=== PATIENT | male | born 1970 ===

== ENCOUNTER 2020-04-17 22:54 | Emergency (ER) | payer OTHER, SELFPAY ==
[2020-04-17 22:58] VITALS: BP 148/89; PULSE 55; RESP 18; TEMP 36.2; O2SAT 99; BMI 31.9
--- NOTE | 2020-04-17 23:35 | ED.DIZZY ---
HPI - Dizziness General Chief Complaint: Dizziness Stated Complaint: dizzy spells Time Seen by Provider: 04/17/20 23:35 Source: patient Mode of arrival: ambulatory Limitations: no limitations History of Present Illness HPI Narrative: patient's history of vertigo about 3 years ago came for 3 hours of dizziness which increases on movements of the head and changing of position no nausea no vomiting no headache symptoms started all of a sudden patient able to ambulate no loss of consciousness no chest pain MD elicited complaint: dizziness Pertinent past history: BPPV Onset (ago): hour(s) (3) Timing: sudden onset Severity: mild Description: sense of movement and room spinning Context: change in body position History of similar symptoms: Yes Exacerbating factors: movement/ambulation and change in body position Relieving factors: remaining still Associated symptoms: denies other symptoms Related Data Allergies Allergy/AdvReac Type Severity Reaction Status Date / Time none Allergy Unknown Uncoded 07/19/19 00:00 Review of Systems Review of Systems: Yes all other systems are reviewed and are negative [facility] Social History Social History Alcohol intake: current Alcohol intake frequency: holidays/special occasions only Alcohol type: wine Smoking Status: Never smoker Use of substances other than those prescribed or required for medical reasons: No Advance Directives: No Physical Exam Vital Signs: Vital Signs: Last Vital Signs Temp 97.2 F 04/17/20 22:58 Pulse 61 04/18/20 00:04 Resp 18 04/18/20 00:04 BP 111/70 04/18/20 00:04 Pulse Ox 98 04/18/20 00:04 Body Mass Index 31.9 Appearance: Alert. Oriented X3. No acute distress. Eyes: Pupils equal, round and reactive to light. no nystagmus ENT: Pharynx normal. Neck: Normal inspection. Neck supple. CVS: Normal heart rate and rhythm. Pulses normal. Respiratory: No respiratory distress. Breath sounds normal. Abdomen: Soft and nontender. Skin: Skin warm and dry. Normal skin color. Normal skin turgor. Extremities: No lower extremity edema. Good range of movement Neuro: Oriented X 3. No motor deficit. No sensory deficit. no cerebellar signs MDM - Dizziness MDM Narrative Medical decision making narrative: patient with sudden onset of dizziness with history of similar episode of BPV the past without any neurological deficit feels better after meclizine will discharge patient home Differential Diagnosis Differential diagnosis: Likely benign paroxysmal positional vertigo
[2020-04-17] MEDS: Meclizine HCl 25 MG TABLET 50 MG PO (23:58)
[2020-04-18 00:04] VITALS: BP 111/70; PULSE 61; RESP 18; O2SAT 98
--- NOTE | 2020-04-18 01:18 | PC.NURSE ---
pt has demonstraited a steady gait with no vertigo noted. pt is aox3 skin pink warm and dry with no s/s of distress. pt has ambulated to bathroom with steady gait and voided with no difficulty. pt states he feels ready to go home.
== END 2020-04-18 01:18 | disposition home or self-care (01) ==
PROVIDERS: Emergency Provider Internal Medicine; PCP Internal Medicine
DX: R42 Dizziness and giddiness (principal)
CPT/HCPCS: 99283; 99284

== ENCOUNTER 2020-05-14 07:26 | Day surgery (SDC) | payer OTHER, SELFPAY ==
[2020-05-01 14:10] VITALS: BMI 31.9
--- NOTE | 2020-05-07 14:00 | P.CONAN_ITS ---
Documented by User: Richa Kirby 05/07/20 14:01 HPI - Anesthesia Eval Consult details Narrative: 50yo M for Colonoscopy [facility] Past Medical History Medical History Carpal tunnel syndrome GERD (gastroesophageal reflux disease) Impaired fasting glucose Obesity Vertigo Surgical History Surgical History No significant past surgical history Social History Social History Are you a primary assisted living care manager to a significant other at home: No Do you presently have visiting nurse or other home services: No Alcohol intake: current Alcohol intake frequency: holidays/special occasions only Alcohol type: wine Smoking Status: Never smoker Use of substances other than those prescribed or required for medical reasons: No Have you been hit, kicked, punched, or otherwise hurt by someone within the past year? If so, by whom?: No Advance Directives: No Advance Directives Information Provided: No Advance Directives on File: No Recently lost weight without trying: No Meds Allergies Allergy/AdvReac Type Severity Reaction Status Date / Time No Known Allergies Allergy Verified 05/01/20 14:10 Exam Exam Date and Time: May 07, 2020 1400 Height,Weight and Vital Signs: Height 5 ft 8 in Weight 95.254 kg Assessment and Plan Assessment Anesthesia Assessment: Chart Reviewed Documented by User: Kelsey Bass 05/14/20 08:27 [facility] Past Medical History Medical History Carpal tunnel syndrome GERD (gastroesophageal reflux disease) Impaired fasting glucose Obesity Vertigo Surgical History Surgical History No significant past surgical history Social History Social History Are you a primary assisted living care manager to a significant other at home: No Do you presently have visiting nurse or other home services: No Alcohol intake: current Alcohol intake frequency: holidays/special occasions only Alcohol type: wine Smoking Status: Never smoker Use of substances other than those prescribed or required for medical reasons: No Have you been hit, kicked, punched, or otherwise hurt by someone within the past year? If so, by whom?: No Advance Directives: No Advance Directives Information Provided: No Advance Directives on File: No Recently lost weight without trying: No Meds Allergies Allergy/AdvReac Type Severity Reaction Status Date / Time No Known Allergies Allergy Verified 05/01/20 14:10 Exam Airway Mallampati Class: I TM Dist: >3cm Neck ROM: Full Loose/Missing/Broken Teeth: No Heart: RRR Lungs: CTA Assessment and Plan Assessment Anesthesia Assessment: Anesthesia Plan Discussed and Chart Reviewed Final Anesthetic Review NPO: Yes ASA Class: II Final Preanesthetic Review: Meds/Allgs Chart Reviewed, Consent Obtained/Reviewed and Anes Risks/Benef Reviewed Patient Risk: Low Procedure Risk: Low Anesthetic Plan Anesthetic Plan: MAC: Disposition: Standard PACU
[2020-05-14 07:58] VITALS: BP 133/87; PULSE 82; RESP 18; TEMP 36.2; O2SAT 98
[2020-05-14] MEDS: Lactated Ringers 1,000 ML 100 ML IVCONT (08:14)
--- NOTE | 2020-05-14 08:51 | P.BOP_ITS ---
Brief Operative Note Date of Service: 05/14/20 Pre-op diagnosis: colon screening Post-op diagnosis: same Procedure: Operative Information Procedure Description: Colonoscopy COLONOSCOPY Instrument: Olympus variable stiffness pediatric scope 190L Colonoscopy Monitoring: Vital signs and clinical assessment, continuous EKG monitoring, Pulse oximetry, Carbon Dioxide monitoring and blood pressure monitoring were done throughout the procedure. Colon withdrawal time was 17 minutes. Procedure: The patient was placed in the left lateral decubitis position and pre-procedure medications were administered. After a digital rectal examination of the ano-rectum, the video colonoscope was inserted into the rectum and advanced through the colon to the cecum/TI. The colonoscope was slowly withdrawn in a retrograde panoramic fashion and the colon mucosa was carefully examined including a retroflexed view of the rectum. Findings and interventions are described below. Procedure Difficulty: easy Findings: Estrada diverticular disease, with inverted tics noted, worse in sigmoid Terminal Ileum-normal Cecum: x2 sessile polyps, very subtle noted measuring about 8-1 0 mm removed with biopsy forceps Ascending Colon: 10 mm flat polyp lifted with few cc of ORISE and removed with cold snare, possible residual tissue at edges removed with forceps Transverse Colon -normal Descending Colon:normal Sigmoid Colon: normal Rectum: Retroflexion with small internal hemorrhoids, grade I Anorectum - normal Colon preparation: [place] Bowel Preparation Scale Right colon; 3 Transverse colon: 3 Left colon; 3 (0 = Unprepared colon segment with mucosa not seen due to solid stool that cannot be cleared. 1 = Portion of mucosa of the colon segment seen, but other areas of the colon segment not well seen due to staining, residual stool and/or opaque liquid. 2 = Minor amount of residual staining, small fragments of stool and/or opaque liquid, but mucosa of colon segment seen well. 3 = Entire mucosa of colon segment seen well with no residual staining, small fragments of stool or opaque liquid) Impression and Post Procedure Diagnosis: polyps internal hemorrhoids diverticular disease Plan: High fiber diet leaflet Avoid straining at stool, epsom salts and sitz bath, anusol supps or cream prn Repeat Colonoscopy in 5 years or earlier if clinically indicated Above findings were reviewed with the patient and relevant handouts were provided if indicated. Surgeon: Karla Dillard MD Anesthesia: MAC Estimated blood loss (mL): 0 Condition: stable Disposition: PACU
--- NOTE | 2020-05-14 08:51 | MHC.SHP ---
Pre-Procedural Eval Section B Chief Complaint: Screening Relevant Family History (Specify if Yes): No Relevant Social History: None Present Medications: see Short Stay Collaborative assessment Medical History: Significant History (Carpal tunnel syndrome GERD (gastroesophageal reflux disease) Impaired fasting glucose Obesity Vertigo) History of Previous Operations: No relevant previous surgery Allergies: Allergies Allergy/AdvReac Type Severity Reaction Status Date / Time No Known Allergies Allergy Verified 05/01/20 14:10 Review of Systems Sugical H&P ROS: Negative: Constitution, Cardiovascular, Respiratory, Neurological, Psychiatric, Hem-Onc, Allergic/Immunologic, Gastrointestinal, Genitourinary, Musculoskeletal, Integumentary, Endocrine and Eyes/Ears/Nose/Throat Exam Surgical H&P Exam: Normal: HEENT, Normal: Heart, Normal: Lungs, Normal: Extremities, Normal: Abdomen, Normal: Skin and Normal: Neurological Plan Diagnosis/Plan: Unchanged I have reviewed the history and physical and performed a pertinent physical examination on my patient. No changes have occurred unless specified.
[2020-05-14 09:23] VITALS: BP 115/67; PULSE 74; RESP 16; TEMP 36.3; O2SAT 99
[2020-05-14 09:38] VITALS: BP 115/78; PULSE 74; RESP 18; TEMP 36.5; O2SAT 100
--- NOTE | 2020-05-14 09:51 | HO.POSTANES ---
Post Anesthesia Evaluation Post Anesthesia Evaluation Vital Signs: Vital Signs Temp Pulse Resp BP Pulse Ox 05/14/20 09:38 97.7 F 74 18 115/78 100 05/14/20 09:23 97.4 F 74 16 115/67 99 05/14/20 07:58 97.1 F 82 18 133/87 98 Anesthesia: Monitored Mental Status: Awake Pain Control: Satisfactory Nausea/Vomiting: None Hydration: Adequate Anesthesia-Related Issues: No Anes. Related Issues
== END 2020-05-14 10:00 | disposition home or self-care (01) ==
PROVIDERS: PCP Internal Medicine; Visit Provider Internal Medicine Gastroenterology
PROC: 0DJD8ZZ Inspection of Lower Intestinal Tract, Via Natural or Artificial Opening Endoscopic (ICD-10-PCS; CPT 45378; principal; 2020-05-14 08:30)
DX: Z12.11 Encounter for screening for malignant neoplasm of colon (principal); D12.0 Benign neoplasm of cecum; D12.2 Benign neoplasm of ascending colon; K57.30 Diverticulosis of large intestine without perforation or abscess without bleeding; K64.0 First degree hemorrhoids; K21.9 Gastro-esophageal reflux disease without esophagitis; R73.01 Impaired fasting glucose; R42 Dizziness and giddiness; Z79.899 Other long term (current) drug therapy
CPT/HCPCS: 45385; 45380; 45381; 88305

== ENCOUNTER → 2020-05-28 11:06 | Outpatient (BNVA) | payer OTHER, SELFPAY | PROVIDERS: PCP Internal Medicine; Referring Provider Internal Medicine; Visit Provider Physician Assistant ==

== ENCOUNTER 2020-06-01 12:25 | Outpatient (REF) | payer OTHER, SELFPAY | END 2020-06-01 12:26 | disposition home or self-care (01) | LOC: HO.LAB 12:25 | PROVIDERS: Visit Provider Internal Medicine | DX: Z20.822 Contact with and (suspected) exposure to COVID-19 (principal) | CPT/HCPCS: 36415; C9803; U0003 ==

== ENCOUNTER 2020-06-06 07:14 | Outpatient (REF) | payer OTHER, SELFPAY ==
[2020-06-06 08:04] LABS: MANUAL DIFF FLAG NO
[2020-06-06 08:06] LABS: Eosinophils Absolute Auto 0.1 X10*3/uL (0.0-0.4); Eosinophils Percent Auto 1.3 % (0-4); Hematocrit 41.7 % (42-52); Hemoglobin 14.4 g/dl (14.0-18.0); Imm Gran Abs Auto 0.02 X10*3/uL (0.00-0.03); Imm Gran Pct Auto 0.5 % (0.0-0.4); Lymphocytes Absolute Auto 1.4 X10*3/uL (1.2-4.9); Lymphocytes Percent Auto 34.4 % (20-40); Mean Corpuscular HGB Conc 34.5 g/dl (31.0-36.0); Mean Corpuscular Hemoglobin 29.4 pg (27.0-33.0); Mean Corpuscular Volume 85.3 fL (80-98); Mean Platelet Volume 10.9 fL (9.4-12.4); Monocytes Absolute Auto 0.3 X10*3/uL (0.1-1.2); Monocytes Percent Auto 8.2 % (2-11); Neutrophils Absolute Auto 2.1 X10*3/uL (2.0-8.3); Neutrophils Percent Auto 54.6 % (45-73); Platelet Count 158 X10*3/uL (160-400); Red Blood Count 4.89 X10*6/uL (4.60-5.80); Red Cell Distribution Width 12.6 % (11.0-16.0); White Blood Count 3.9 X10*3/uL (4.8-10.8)
[2020-06-06 09:02] LABS: Alanine Aminotransferase 22 U/L (0-40); Albumin Level 4.3 g/dL (3.5-5.0); Alkaline Phosphatase 82 U/L (39-117); Anion Gap 10 (12-20); Aspartate Amino Transferase 20 U/L (5-37); Bilirubin Total 1.3 mg/dL (0.0-1.0); Blood Urea Nitrogen 14 mg/dL (9-16); Calcium 9.1 mg/dL (8.4-10.2); Carbon Dioxide 27 mmol/L (22-29); Chloride 105 mmol/L (96-108); Cholesterol 134 mg/dL; Estimated Glomerular Filt Rate > 60; Glucose Random 116 mg/dL (60-115); HDL Cholesterol 39 mg/dL; LDL Cholesterol Calculated 75 mg/dl; Potassium 4.3 mmol/l (3.3-5.1); Sodium 138 mmol/L (135-145); Total Protein 7.3 g/dL (6.5-8.0); Triglycerides 100 mg/dL
[2020-06-06 09:23] LABS: Free T4 (Free Thyroxine) 1.01 ng/dL (0.71-1.85); Prostate Specific Antigen Scr 0.63 ng/mL (<0.05-4.0); Thyroid Stimulating Hormone 1.64 uIU/mL (0.32-4.0)
[2020-06-06 09:50] LABS: Folate 16.4 ng/mL (> or = 4.0); Vitamin B12 360 pg/mL (200-900)
[2020-06-06 10:30] LABS: Estimated Average Glucose 111 mg/dL; Hemoglobin A1c % 5.5 %
== END 2020-06-06 07:15 | disposition home or self-care (01) ==
LOC: HO.LAB 07:14
PROVIDERS: PCP Internal Medicine; Visit Provider Internal Medicine
DX: R73.01 Impaired fasting glucose (principal); E78.00 Pure hypercholesterolemia, unspecified; Z12.5 Encounter for screening for malignant neoplasm of prostate
CPT/HCPCS: 36415; 80053; 80061; 82607; 82746; 83036; 84153; 84439; 84443; 85025; 86900; 86901

== ENCOUNTER 2020-09-04 15:53 | Outpatient (REF) | payer OTHER, SELFPAY | END 2020-09-04 15:54 | disposition home or self-care (01) | LOC: HO.LAB 15:53 | PROVIDERS: Visit Provider Internal Medicine | DX: Z20.822 Contact with and (suspected) exposure to COVID-19 (principal) | CPT/HCPCS: 36415; 87635; C9803; U0003; U0005 ==

== ENCOUNTER 2020-09-17 14:10 | Outpatient (REF) | payer OTHER, SELFPAY ==
[2020-09-17 14:28] LABS: COVID-19 Test Negative (Negative)
== END 2020-09-17 14:11 | disposition home or self-care (01) ==
LOC: HO.LAB 14:10
PROVIDERS: Visit Provider Internal Medicine
DX: Z20.822 Contact with and (suspected) exposure to COVID-19 (principal)
CPT/HCPCS: 36415; 87635; C9803

== ENCOUNTER 2021-01-24 12:26 | Outpatient (REF) | payer OTHER, SELFPAY | END 2021-01-24 12:27 | disposition home or self-care (01) | LOC: HO.LAB 12:26 | PROVIDERS: PCP Internal Medicine; Visit Provider Internal Medicine | DX: Z20.822 Contact with and (suspected) exposure to COVID-19 (principal) | CPT/HCPCS: C9803; U0003; U0005 ==

== ENCOUNTER 2021-09-27 10:55 | Outpatient (REF) | payer OTHER, SELFPAY ==
[2021-09-27 12:09] LABS: COVID-19 Test Positive (Negative)
== END 2021-09-27 10:56 | disposition home or self-care (01) ==
LOC: HO.LAB 10:55
PROVIDERS: Visit Provider Internal Medicine
DX: Z20.822 Contact with and (suspected) exposure to COVID-19 (principal)
CPT/HCPCS: 87635; C9803

== ENCOUNTER 2021-10-02 15:20 | Outpatient (REF) | payer OTHER, SELFPAY ==
[2021-10-02 15:53] LABS: COVID-19 Test Negative (Negative); IDNOW Serial# 9DB6401D
== END 2021-10-02 15:21 | disposition home or self-care (01) ==
LOC: HO.LAB 15:20
PROVIDERS: Visit Provider Internal Medicine
DX: Z20.822 Contact with and (suspected) exposure to COVID-19 (principal)
CPT/HCPCS: 87635; C9803

== ENCOUNTER 2022-07-11 07:35 | Outpatient (REF) | payer OTHER, SELFPAY ==
[2022-07-11 09:41] LABS: HBc Num1 0.07 S/CO (0.00-0.79); HBsAGNum1 0.52 S/CO (0.00-0.99); HIV AB/AG Nonreactive (Nonreactive); HIV Num 1 0.06 S/CO (0.00-0.99); Hepatitis B Core Antibody Nonreactive (Nonreactive); Hepatitis B Surface Antigen Negative (Negative); ~HepC Num1 0.12 S/CO (0.00-0.79); ~Hepatitis B Surface Antibody NONREACTIVE (Nonreactive); ~Hepatitis C Antibody Nonreactive (Nonreactive)
[2022-07-16 20:28] LABS: Treponema pallidum Ab FTA ABS Nonreactive (Nonreactive)
== END 2022-07-11 07:36 | disposition home or self-care (01) ==
LOC: HO.LAB 07:35
PROVIDERS: PCP Internal Medicine; Visit Provider Internal Medicine
DX: Z11.4 Encounter for screening for human immunodeficiency virus [HIV] (principal); R79.89 Other specified abnormal findings of blood chemistry; Z20.2 Contact with and (suspected) exposure to infections with a predominantly sexual mode of transmission
CPT/HCPCS: 36415; 86704; 86706; 86780; 86803; 87340; 87389

== ENCOUNTER 2023-05-02 08:59 | Outpatient (REF) | payer OTHER, SELFPAY ==
[2023-05-02 10:29] LABS: Basophils Percent Auto 0.4 % (0-2); Eosinophils Absolute Auto 0.1 X10*3/uL (0.0-0.4); Eosinophils Percent Auto 1.1 % (0-4); Hematocrit 44.2 % (42.0-52.0); Hemoglobin 15.3 g/dl (14.0-18.0); Imm Gran Abs Auto 0.02 X10*3/uL (0.00-0.03); Imm Gran Pct Auto 0.4 % (0.0-0.4); Lymphocytes Absolute Auto 1.2 X10*3/uL (1.2-4.9); Lymphocytes Percent Auto 26.5 % (20-40); MANUAL DIFF FLAG SCAN; Mean Corpuscular HGB Conc 34.6 g/dl (31.0-36.0); Mean Corpuscular Hemoglobin 29.1 pg (27.0-33.0); Monocytes Absolute Auto 0.3 X10*3/uL (0.1-1.2); Monocytes Percent Auto 6.5 % (2-11); Neutrophils Percent Auto 65.1 % (45-73); PLT CLUMP 1; Red Blood Count 5.26 X10*6/uL (4.60-5.80); Red Cell Distribution Width 12.4 % (11.0-16.0); SCAN SMEAR FLAG 1
[2023-05-02 10:39] LABS: Estimated Average Glucose 111 mg/dL; Hemoglobin A1c % 5.5 % (<6.0)
[2023-05-02 10:49] LABS: White Blood Count 4.6 X10*3/uL (4.8-10.8)
[2023-05-02 11:01] LABS: SLIDE REVIEW VERIFIED
[2023-05-02 11:05] LABS: Alanine Aminotransferase 20 U/L (0-40); Albumin Level 4.4 g/dL (3.5-5.0); Alkaline Phosphatase 77 U/L (39-117); Anion Gap 14 (12-20); Aspartate Amino Transferase 27 U/L (5-37); Bilirubin Total 1.6 mg/dL (0.0-1.0); Blood Urea Nitrogen 15 mg/dL (9-16); Calcium 9.8 mg/dL (8.4-10.2); Carbon Dioxide 25 mmol/L (22-29); Chloride 106 mmol/L (96-108); Cholesterol 143 mg/dL (<200); Estimated Glomerular Filt Rate > 60; Glucose Random 127 mg/dL (60-115); HDL Cholesterol 40 mg/dL (>40); LDL Cholesterol Calculated 87 mg/dL (<100); Potassium 4.3 mmol/L (3.3-5.1); Sodium 141 mmol/L (135-145); Triglycerides 80 mg/dL (<150)
[2023-05-02 11:16] LABS: Syphilis Screen Nonreactive (Nonreactive)
[2023-05-02 11:17] LABS: HBS Num1 0.63 mIU/mL (0-7.99); HBc Num1 0.08 S/CO (0.00-0.79); HBsAGNum1 0.32 S/CO (0.00-0.99); Hepatitis B Core Antibody Nonreactive (Nonreactive); Hepatitis B Surface Antigen Negative (Negative); ~HepC Num1 0.11 S/CO (0.00-0.79); ~Hepatitis B Surface Antibody NONREACTIVE (Nonreactive); ~Hepatitis C Antibody Nonreactive (Nonreactive)
[2023-05-02 11:21] LABS: Free T4 (Free Thyroxine) 1.06 ng/dL (0.71-1.85)
[2023-05-02 11:52] LABS: Thyroid Stimulating Hormone 1.84 uIU/mL (0.32-4.0)
[2023-05-02 12:21] LABS: Folate 13.5 ng/mL (> or = 4.0); Prostate Specific Antigen Scr 0.83 ng/mL (<0.05-4.0); Vitamin B12 568 pg/mL (200-900)
[2023-05-06 17:09] LABS: HIV RNA PCR Qn Copies Not Detected Copies/mL; HIV RNA PCR Qn Log Copies Not Detected Log cps/mL
== END 2023-05-02 09:00 | disposition home or self-care (01) ==
LOC: HO.LAB 08:59
PROVIDERS: PCP Internal Medicine; Visit Provider Internal Medicine
DX: Z12.5 Encounter for screening for malignant neoplasm of prostate (principal); Z11.4 Encounter for screening for human immunodeficiency virus [HIV]; R73.01 Impaired fasting glucose; E78.00 Pure hypercholesterolemia, unspecified; R79.89 Other specified abnormal findings of blood chemistry; Z20.2 Contact with and (suspected) exposure to infections with a predominantly sexual mode of transmission
CPT/HCPCS: 36415; 80053; 80061; 82607; 82746; 83036; 84153; 84439; 84443; 85025; 86704; 86706; 86780; 86803; 87340; 87536; 87900

== ENCOUNTER 2023-05-06 14:12 | Outpatient (AMB) | payer OTHER, SELFPAY ==
--- NOTE | 2023-05-06 14:14 | A.OFFPC_ITS ---
Vital Signs 05/06/23 14:15 05/06/23 14:40 Height 5 ft 6.93 in Weight 202 lb 2 oz BMI 31.7 BP 150/90 H 140/90 H Blood Pressure Location Lt brachial Lt brachial Position Sitting Sitting Pulse 74 Pulse Source Pulse Oximeter Pulse Oximetry (%) 98 Oxygen Delivery Method Room Air Intake Visit Reasons: Physical Mangle Roller Required: No Accompanied by: Self / Same As Patient Allergies No Known Allergies Allergy (Verified 05/06/23 14:15) Medication List - Last Reconciled 05/06/23 by Venu Barclay MD blood pressure monitor (Blood Pressure Kit) As directed Tobacco use date assessed: 05/06/23 Dental Screening Dental Screen Date: 05/06/23 Did you have a dental visit in the last 12 months?: No Did you have a dental problem in the last 6 months where you did not have access to dental care?: No Was dental information given to patient?: Yes HPI Physical HPI Details 53-year-old obese male with GERD and imp aired glucose tolerance last seen for physical in June 2021. Patient follows up today for physical exam. Colonoscopy is up-to-date May 2020 [facility] Medical History Carpal tunnel syndrome GERD (gastroesophageal reflux disease) Impaired fasting glucose Obesity Vertigo Surgical History No significant past surgical history Family History Unknown No family history of colorectal cancer Social History (Updated 05/06/23 @ 14:43 by Venu Barclay MD) Household Members: Spouse and Children Housing: House Are you a primary transitional care liaison to a significant other at home: No Do you presently have visiting nurse or other home services: No Alcohol intake: current Alcohol intake frequency: holidays/special occasions only Alcohol type: wine Comment: 2x a month 1-2 glasses Patient Tobacco Use Status: Never used Tobacco e-Cigarette/Vaping Use: Never Used Second Hand Smoke Exposure: No service: No Current occupational status: employed Current occupation: [employer] Current occupational exposures/hazards: Yes Cognitive needs: No Hearing needs: No Vision needs: Yes Questionnaire PHQ-9 Over the last 2 weeks, how often have you been bothered by any of the following problems? 1. Little interest or pleasure in doing things: not at all 2. Feeling down, depressed, or hopeless: not at all 3. Trouble falling or staying asleep, or sleeping too much: not at all 4. Feeling tired or having little energy: not at all 5. Poor appetite or overeating: not at all 6. Feeling bad about yourself - or that you are a failure or have let yourself or your family down: not at all 7. Trouble concentrating on things, such as reading the newspaper or watching television: not at all 8. Moving or speaking so slowly that other people could have noticed. Or the opposite - being so fidgety or restless that you have been moving around a lot more than usual: not at all 9. Thoughts that you would be better off or of hurting yourself in some way: not at all Total score: 0 48504 - PHQ-9 Billing: Yes Source: Developed by Drs. Bernard Oh, Cecily Mckeon, Warren Bonner and colleagues, with an educational cornell from [employer]. Thrive Questionnaire Date Thrive assessed: 05/06/23 I am a: Patient What is your living situation today?: I have a steady place to live Within the past 12 months, did the food you bought not last and you didn't have the money to get more?: Never true Within the past 12 months, did you worry whether your food would run out before you got money to buy more?: Never true Do you have trouble paying for medicines?: No Do you have trouble getting transportation to medical appointments?: No Do you have trouble paying your heating and electricity bill?: No Do you have trouble taking care of your child, family member or friend?: No Do you have trouble with day-to-day activities such as bathing, preparing meals, shopping, managing finances, etc.?: No Are you currently unemployed and looking for a job?: No Are you interested in more education?: No Please select the resources that you would like help with: None Currently or been in a relationship where the following occur: no concerns reported AUDIT C Alcohol Use Questionnaire (AUDIT-C) 1. How often do you have a drink containing alcohol?: Monthly or less 2. How many drinks containing alcohol do you have on a typical day when you are drinking?: 1 or 2 3. How often do you have six or more drinks on one occasion?: Never Total Score: 1 BLANCA-7 AMB Questionnaire BLANCA-7 Date BLANCA - 7 assessed: 05/06/23 Feeling nervous, anxious, or on edge: 0 = Not at all Not being able to stop or control worryin = Not at all Worrying too much about different things: 0 = Not at all Trouble relaxin = Not at all Being so restless that it is hard to sit still: 0 = Not at all Becoming easily annoyed or irritable: 0 = Not at all Feeling afraid as if something awful might happen: 0 = Not at all Total BLANCA-7 score (0-4 normal; 5-9 mild; 10-14 moderate; 15-21 severe): 0 Source: Developed by Drs. Bernard Oh, Cecily Mckeon, Warren Bonner and colleagues, with an educational cornell from [employer]. BLANCA-7 Assessment Billing BLANCA-7 Assessment Tool: BLANCA-7 Assessment 14307 Review of Systems Const Denies poor appetite and Denies weakness Eyes Denies no additional complaints ENT Reports Normal hearing present, Denies dizziness, Denies nasal congestion, Denies tinnitus and Denies sore throat Card Denies chest pain, Denies syncope, Denies rapid heart rate and Denies dyspnea Resp Denies cough and Denies dyspnea GI Denies change in stool character, Reports constipation, Denies diarrhea, Denies nausea and Denies vomiting Denies dysuria and Denies urinary frequency Neuro Reports Normal hearing present, Denies confusion, Denies dizziness, Denies syncope and Denies weakness Psych Denies confusion Physical exam (Primary Care) Vital Signs: Last Vital Signs Pulse 74 05/06/23 14:15 BP 150/90 H 05/06/23 14:15 Pulse Ox 98 05/06/23 14:15 Oxygen Delivery Method Room Air 05/06/23 14:15 BMI result Body Mass Index 31.7 Tobacco/Smoking Status: Tobacco use Status Tobacco use date assessed 05/06/23 05/06/23 14:25 Patient Tobacco Use Status Never used Tobacco 05/06/23 14:16 e-Cigarette/Vaping Use Never Used 05/06/23 14:16 PHQ-9: PHQ-9 Score PHQ-9: Total score 0 05/06/23 14:25 Thrive Assessment: Date of Thrive Assessment Date Thrive assessed 05/06/23 05/06/23 14:25 Currently or been in a relationship where the following occur: no concerns reported Const General: alert and awake; No confusion Orientation/consciousness: No confusion HENMT Head: Yes normocephalic Ears: external ears normal and TM's normal bilaterally Face and sinus: Yes normal facial exam Mouth: moist mucous membranes Throat: Yes tonsils normal Eyes Conjunctivae: conjunctivae normal Pupils: Equal, round and reactive pupils present and Pupil accommodation reflex normal Direct Ophthalmoscopy: normal light reflex Neck Neck: No lymphadenopathy Thyroid: Thyroid normal Chest Other: Pole 1 cm hyper pigmented palpable cyst on the chest-patient has mentioned that has been squeezing the cyst out causing the hyper pigmentation. Resp Effort & Inspection: normal respiratory effort and no audible wheezes Auscultation: clear to auscultation bilaterally, no crackles, no wheezes and lung sounds not diminished Cardio Rate: regular rate Rhythm: regular rhythm Peripheral pulses: radial pulses present and dorsalis pedis present GI Other: Guaiac negative stools mildly enlarged prostate Palpation (GI): no masses Auscultation: normal bowel sounds and normoactive bowel sounds Rectal Exam - Male: Yes deferred Skin General skin exam: no rashes or lesions noted Rashes: no rashes Neuro General: deep tendon reflexes 2+ bilaterally and No confusion Cranial nerves: Yes Equal, round and reactive pupils present, Yes Midline tongue present, Yes Normal hearing present and Yes Ability to bilaterally elevate shoulders present Cognition (Neuro): normal cognition Gait exam (Neuro): Normal gait present Motor exam (neuro): 5/5 motor strength present throughout Deep tendon reflexes (DTR's): Right brachioradialis reflex intensity grade: 2+, Left brachioradialis reflex intensity grade: 2+, Right patellar reflex intensity grade: 2+ and Left patellar reflex intensity grade: 2+ Extrem General: No edema Assessment and Plan Assessment & Plan (1) Annual physical exam: Code(s): Z00.00 - Encounter for general adult medical examination without abnormal find ings (2) Impaired fasting glucose: Code(s): R73.01 - Impaired fasting glucose Plan: Decrease the amount of carbohydrate intake, pasta, bread, rice and potatoes are all sugar and that is aside from all the sweet stuff, remember that fruits are good but they are Sweet also. (3) Obesity: Code(s): E66.9 - Obesity, unspecified Qualifiers: Obesity type: due to excess calories Obesity classification: adult class 1 (BMI 30 - 34.9) Serious obesity comorbidity presence: without serious comorbidity Body mass index: BMI 31.0-31.9 Qualified Code(s): E66.09 - Other obesity due to excess calories; Z68.31 - Body mass index [BMI] 31.0-31.9, adult Plan: Diet and exercise, noted weight loss!! (4) Blood pressure elevated without history of HTN: Code(s): R03.0 - Elevated blood-pressure reading, without diagnosis of hypertension Plan: Advised to continue monitoring the blood pressure. (5) Tendon cysts: Comment: Left thumb area Code(s): M67.80 - Other specified disorders of synovium and tendon, unspecified site Plan: Referral to orthopedics done (6) Low back pain: Code(s): M54.50 - Low back pain, unspecified Qualifiers: Chronicity: chronic Back pain laterality: midline Sciatica presence: without sciatica Qualified Code(s): M54.50 - Low back pain, unspecified; G89.29 - Other chronic pain Plan: X-ray requested (7) Epidermal cyst: Code(s): L72.0 - Epidermal cyst Plan: Triamcinolone cream to help it heal but if the cyst changes referral to the surgeon. Orders: Orders XR lumbar spine 2-3V Today M54.50 - Low back pain, unspecified Comprehensive Met. Panel 3 Months R73.01 - Impaired fasting glucose Hemoglobin A1c 3 Months R73.01 - Impaired fasting glucose Complete Blood Count Auto Diff 3 Months R73.01 - Impaired fasting glucose Referrals Orthopedics Referral M67.80 - Other specified disorders of synovium and tendon, unspecified site Medications: New blood pressure monitor (Blood Pressure Kit) As directed 1 ea 0RF I10 - Essential (primary) hypertension, R03.0 - Elevated blood-pressure reading, without diagnosis of hypertension triamcinolone acetonide 0.5% 1 appl topical BID 30 grams 0RF L72.0 - Epidermal cyst Coding Level of Care Code Est Pt Prev Care 40-64y([id number]) Diagnoses Annual physical exam Z00.00 Impaired fasting glucose R73.01 Class 1 obesity due to excess calories without serious comorbidity with body mass index (BMI) of 31.0 to 31.9 in adult E66.09; Z68.31 Obesity type: due to excess calories Obesity classification: adult class 1 (BMI 30 - 34.9) Serious obesity comorbidity presence: without serious comorbidity Body mass index: BMI 31.0-31.9 Blood pressure elevated without history of HTN R03.0 Tendon cysts M67.80 Chronic midline low back pain without sciatica M54.50; G89.29 Chronicity: chronic Back pain laterality: midline Sciatica presence: without sciatica Epidermal cyst L72.0 Additional Codes BLANCA-7 Assessment Billing - BLANCA-7 Assessment Tool: BLANCA-7 Assessment [id number] ([id number])
[2023-05-06 14:15] VITALS: BP 150/90; PULSE 74; O2SAT 98; BMI 31.7
[2023-05-06 14:40] VITALS: BP 140/90
== END 2023-05-06 15:02 | disposition home or self-care (01) ==
PROVIDERS: PCP Internal Medicine; Visit Provider Internal Medicine
DX: Z00.00 Encounter for general adult medical examination without abnormal findings (principal); R73.01 Impaired fasting glucose; E66.09 Other obesity due to excess calories; Z68.31 Body mass index [BMI] 31.0-31.9, adult; R03.0 Elevated blood-pressure reading, without diagnosis of hypertension; M67.80 Other specified disorders of synovium and tendon, unspecified site; M54.50 Low back pain, unspecified; G89.29 Other chronic pain; L72.0 Epidermal cyst
CPT/HCPCS: 99396

== ENCOUNTER 2023-05-27 08:01 | Outpatient (AMB) | payer OTHER, SELFPAY ==
--- NOTE | 2023-05-27 08:30 | A.OFFVIS_ITS ---
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 Patient reports lump has been present for years. He states lump grows in size and is tender to the touch. throbbing pain. Denies injury, numbness and tingling. He would like to discuss removal of lump. 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 He states he has lump on his left thumb for about 3 years which is tender to touch and experiences throbbing pain in his thumb. He denies any drainage or rupture of the lump. He denies any wrist pain. He has not had any numbness, tingling or any previous injury. He would like to discuss removal of lump. He has a history of prediabetes. [facility] Medical History Carpal tunnel syndrome GERD (gastroesophageal reflux disease) Impaired fasting glucose Obesity Vertigo Surgical History No significant past surgical history Family History Unknown No family history of colorectal cancer Social History (Updated 05/27/23 @ 08:33 by TOMY Molina) Household Members: Spouse and Children Housing: House Are you a primary career placement services counselor to a significant other at home: No Do you presently have visiting nurse or other home services: No Alcohol intake: current Alcohol intake frequency: holidays/special occasions only Alcohol type: wine Comment: 2x a month 1-2 glasses Patient Tobacco Use Status: Never used Tobacco e-Cigarette/Vaping Use: Never Used Second Hand Smoke Exposure: No service: No Current occupational status: employed 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, 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 Current occupational exposures/hazards: Yes Cognitive needs: No Hearing needs: No Vision needs: Yes Review of Systems Const All systems reviewed & are unremarkable except as noted in HPI and below Physical Exam Vital Signs: BMI result Body Mass Index 32.6 Const General: cooperative, healthy appearing, comfortable, no acute distress, well developed and alert Orientation/consciousness: patient oriented x3 HEENT Head: Yes normal to inspection, Yes normocephalic and Yes atraumatic Eyes General: appearance normal, both eyes and all related structures Neck Neck: Yes normal visual inspection and Yes no lymphadenopathy Resp Effort & Inspection: normal respiratory effort and able to speak in complete sentences Cardio Rate: regular rate Peripheral pulses: Peripheral pulses 2+ throughout GI Inspection: Yes normal to inspection Palpation (GI): Soft to palpation Skin General skin exam: no rashes or lesions noted Lesions: no lesions Rashes: no rashes Neuro General: patient oriented x3 Extrem Other: Left thumb: Skin intact. There is a marble sized mass in line with the CMC joint . The mass is soft and mobile. No tenderness to palpation. NVI. Psych Appearance: grossly normal Mental Status: mental status grossly normal Results Reviewed Results Reviewed: Xrays were obtained in the office today and personally reviewed by me of the left hand are negative for oa, fractures or dislocations. Assessment & Plan Assessment & Plan (1) Epidermal cyst: Code(s): L72.0 - Epidermal cyst Plan We discussed options which include conservative vs operative treatment. Since this has been present for several months and it is causing discomfort the decision was made to undergo surgical intervention. We discussed risk, benefits and alternatives. Risk including but not limited to infection, stiffness, recurrence of mass and pain. He does understand all this and would like to proceed with excision biopsy cyst left thumb with Dr. Colorado. He will be booked accordingly. Orders: Orders XR hand LT min 3V Today M79.642 - Pain in left hand Patient Instructions: Scribed for Suha Silva PA-C, by Lenard Whitlock medical insurance coder, on 05/27/2023 at 8:00 AM EST. I, Suha Silva PA-C, have personally reviewed and agree with the information entered by the scribe. Coding Level of Care Code New Pt Level 4 (97088) Diagnoses Epidermal cyst L72.0
[2023-05-27 08:33] VITALS: BMI 32.6
== END 2023-05-27 08:48 | disposition home or self-care (01) ==
PROVIDERS: PCP Internal Medicine; Visit Provider Physician Assistant
DX: L72.0 Epidermal cyst (principal)
CPT/HCPCS: 99204

== ENCOUNTER 2023-05-27 09:53 | Outpatient (REF) | payer OTHER, SELFPAY ==
--- NOTE | ~2023-05-27 | XR_ITS ---
EXAMINATION: XR HAND, LEFT CLINICAL INFORMATION: Pain. COMPARISON: None available. TECHNIQUE: PA, lateral, and oblique views of the left hand. FINDINGS: Bony alignment and mineralization are normal. There are subchondral cysts noted of the proximal lunate. No fracture or dislocation is seen. The proximal and distal carpal rows are intact. There is no abnormal bone erosion. There are small linear and punctate soft tissue calcifications in the soft tissues of lateral to the base of the second proximal phalanx. No soft tissue gas or foreign body is seen. XR/XR hand LT min 3V IMPRESSION: 1. Subchondral cysts of the lunate are noted, which can be associated with ulnar impaction syndrome. 2. There are small nonspecific soft tissue calcifications seen at the lateral aspect of the base of the left index finger.
== END 2023-05-27 09:54 | disposition home or self-care (01) ==
LOC: HO.HOSX 09:53
PROVIDERS: Visit Provider Physician Assistant
DX: M79.642 Pain in left hand (principal); L72.0 Epidermal cyst
CPT/HCPCS: 73130

== ENCOUNTER 2023-05-31 09:15 | Emergency (ER) | payer OTHER, SELFPAY ==
[2023-05-31 09:21] VITALS: BP 144/101; PULSE 71; RESP 16; TEMP 36.6; O2SAT 97; BMI 32.7
--- NOTE | 2023-05-31 09:29 | ED_ITS ---
HPI - Skin/Abscess/Foreign Bdy General Chief complaint: Skin/Abscess/Foreign Body Stated complaint: Throbbing/pain left hand Time Seen by Provider: 05/31/23 09:29 Source: patient Mode of arrival: ambulatory Limitations: no limitations History of Present Illness HPI narrative: This is a 53 year old 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 male with pmhx significant for GERD, diverticulosis, presenting to the ED today for evaluation of painful lump on left thumb. He states that the lump has been present for years. Reports recent xray showing cysts at the base of the left thumb for which he has surgery with ortho scheduled on (in one month). States he was playing racquet ball yesterday which may have irritated the thumb. Admits to waking up this morning with pain and throbbing to the area. Took 3 Aleve this morning which has helped with the pain. Denies drainage from the cyst, numbness/tingling/weakness of the extremity. Related Data Previous Rx's Medication Instructions Recorded blood pressure monitor (Blood #1 ea 05/06/23 Pressure Kit) triamcinolone acetonide 0.5 % 1 appl topical BID #30 grams 05/06/23 topical cream naproxen 500 mg tablet 500 mg PO Q8-12H PRN pain (scale 05/31/23 score 4-6) #20 tabs Allergies Allergy/AdvReac Type Severity Reaction Status Date / Time No Known Allergies Allergy Verified 05/27/23 08:38 Review of Systems 2 Review of Systems: Constitutional: No fever, chills, fatigue, night sweats, weight changes ENT/Mouth: No ear pain, hearing loss, nasal congestion, sinus pain, rhinorrhea, sore throat Eyes: No eye pain, swelling, redness, vision changes, discharge Cardio: No chest pain, palpitations, UNGER, orthopnea, peripheral edema Pulm: No SOB, cough, sputum, wheezing, dyspnea, hemoptysis GI: No nausea, vomiting, hematemesis, abdominal pain, diarrhea, constipation, hematochezia, melena : No irregular bleeding, dysuria, frequency, urgency, hesitancy, hematuria, flank pain, urinary flow changes, urinary incontinence or retention MSK: No back pain, neck pain, joint pain, myalgias, +bump to left thumb Skin: No lesions, rashes Neuro: No weakness, numbness, paresthesias, LOC, dizziness, headache All other systems reviewed and are negative. [facility] Past Medical History Attestation statement: The following information was validated with the patient. Source: old records reviewed and nursing notes reviewed Onset Date is defined in the Problem List Problems that require an onset date and time if occurred within 24 hrs of arrival to the ED Aortic Dissection and Rupture; Neurologic impairment; Cardiopulmonary Arrest; Endotracheal Intubation; Insertion or Replacement of Mechanical Circulatory Assist Device Medical History Vertigo Carpal tunnel syndrome GERD (gastroesophageal reflux disease) Obesity Impaired fasting glucose Surgical History No significant past surgical history Family History Family History Unknown No family history of colorectal cancer Social History Social History Household Members: Spouse and Children Housing: House Are you a primary career developer to a significant other at home: No Do you presently have visiting nurse or other home services: No Alcohol intake: current Alcohol intake frequency: holidays/special occasions only Alcohol type: wine Comment: 2x a month 1-2 glasses Patient Tobacco Use Status: Never used Tobacco e-Cigarette/Vaping Use: Never Used Second Hand Smoke Exposure: No Advance Directives: No Advance Directives Information Provided: Yes service: No Current occupational status: employed 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 Const: General: cooperative, healthy appearing, comfortable and no acute distress Nutritional Appearance: average body habitus O rientation/consciousness: patient oriented x3 Limitations: no limitations Eyes: General: appearance normal, both eyes and all related structures Neck: Neck: Yes normal visual inspection Resp: Effort & Inspection: normal respiratory effort Auscultation: clear to auscultation bilaterally Cardio: Rate: regular rate Rhythm: regular rhythm Skin: General skin exam: no rashes or lesions noted Neuro: General: patient oriented x3 Extrem: Other: Refer to photo below. + marble-sized mass at the base of the l eft thumb in line with the CMC joint. The mass is soft, mobile, mildly tender to palpation. No warmth or palpable fluctuance. Neurovascular intact. Lbbjni-cj-xigua opposition slightly limited secondary to pain. 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 2+ radial pulses to the left upper extremity. Course Course Course Narrative: Patient likely aggravated known epidermal cyst. There is no concern for rupture. He is neurovascularly intact distally. Advised patient to follow-up with ortho tomorrow morning. Will send naproxen to pharmacy for pain control. Patient has remained stable throughout ED visit today. Discussed strict return precautions. All questions answered at this time. Patient is agreeable with disposition and stable for discharge. Medical Decision Making Medical Decision Making MDM Narrative: This is a 53 year old 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 male with pmhx significant for GERD, diverticulosis, presenting to the ED today for evaluation of painful lump on left thumb. Patient initially hypertensive to 144/101, now normalized. Vital signs otherwise WNL. Patient is nontoxic-appearing and in no acute distress. On exam, there has a marble-sized mass at the base of the left thumb in line with the CMC joint. The mass is soft, mobile, mildly tender to palpation. No warmth or palpable fluctuance. Neurovascular intact. Qatpxp-mk-nbvdt opposition slightly limited secondary to pain. 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 2+ radial pulses to the left upper extremity. Clinical concern for epidermal cyst, lipoma, arthritis. Unlikely gout vs pseudogout, fracture, dislocation. Plan for vince wrap and disposition. Differential Diagnosis Differential Diagnoses: The differential diagnosis associated with the presentation includes as above. Admission/Observation Not indicated. Prescription Management I considered prescription management with: Pain Medication Chronic Conditions Patient?s care impacted by: Other (Epidermal cyst) Procedures Orthopedic Splinting/Casting Injury #1: Side: left Upper Extremity Injury Location: wrist and hand Upper Extremity Immobilizer: Vince wrap Discharge Plan Discharge Clinical Impression: Epidermal cyst Patient Disposition: Home, Self-Care Instructions: Epidermal Inclusion Cysts (ED) Additional Instructions: Naproxen is an anti-inflammatory that has been sent to your pharmacy. Take this as needed for pain/ swelling. Do not take this with other NSAIDS such as Ibuprofen as this may increase the chance of GI bleed. Call your orthopedic office tomorrow to touch base regarding your visit today. Follow up with PCP as needed. If symptoms persist or worsen or if you begin having numbness or tingling within your left hand, please return to the ED. In the case of an emergency, call 911. Prescriptions: New naproxen 500 mg tablet 500 mg PO Q8-12H PRN (Reason: pain (scale score 4-6)) Qty: 20 0RF No Action (DME) blood pressure monitor [Blood Pressure Kit] Kit See Rx Instructions .ROUTE .MEDSUPPLY Qty: 1 0RF Rx Instructions: As directed triamcinolone acetonide 0.5 % cream 1 appl topical BID Qty: 30 0RF Referrals: [facility] [place] [facility] [Provider Group] Madeline Colorado MD [Physician] - Discharge Date/Time: 05/31/23 09:57
[2023-05-31 09:54] VITALS: BP 152/84; PULSE 76; RESP 16; TEMP 36.4; O2SAT 99
== END 2023-05-31 09:57 | disposition home or self-care (01) ==
PROVIDERS: Emergency Provider Emergency Medicine; PCP Internal Medicine
DX: L72.0 Epidermal cyst (principal); M79.641 Pain in right hand; R03.0 Elevated blood-pressure reading, without diagnosis of hypertension; Z79.899 Other long term (current) drug therapy
CPT/HCPCS: 29125; 99282; 99283; 99284

== ENCOUNTER 2023-06-30 12:17 | Outpatient (AMB) | payer OTHER, SELFPAY ==
--- NOTE | 2023-06-30 12:31 | A.OFFVIS_ITS ---
Intake Intake Visit Reasons: Pre Op LT Thumb exc biopsy 07/09/23 [place] Intake Note: Richard is a 53 year old male who presnets today for a pre operative appointment, booked for a Left Thumb Exc Biopsy on 07/09/23 Allergies No Known Allergies Allergy (Verified 05/27/23 08:38) HPI Pre Op LT Thumb exc biopsy 07/09/23 AR HPI Details Richard is a 53 year old 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 man who presents to discuss his left thumb mass. He complains of a painful mass on the dorsal aspect of his left thumb, which has been present for ~3 years now, He denies any kind of drainage. He denies any drainage or prior treatment. 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 He finds some relief from Naproxen. [facility] Medical History Vertigo Carpal tunnel syndrome GERD (gastroesophageal reflux disease) Obesity Impaired fasting glucose Surgical History No significant past surgical history Family History Unknown No family history of colorectal cancer Social History Household Members: Spouse and Children Housing: House Are you a primary director of medicare to a significant other at home: No Do you presently have visiting nurse or other home services: No Alcohol intake: current Alcohol intake frequency: holidays/special occasions only Alcohol type: wine Comment: 2x a month 1-2 glasses Patient Tobacco Use Status: Never used Tobacco e-Cigarette/Vaping Use: Never Used Second Hand Smoke Exposure: No service: No Current occupational status: employed 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, 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 Current occupational exposures/hazards: Yes Cognitive needs: No Hearing needs: No Vision needs: Yes Review of Systems Const All systems reviewed & are unremarkable except as noted in HPI and below Physical Exam Const General: cooperative, healthy appearing and no acute distress Orientation/consciousness: patient oriented x3 HEENT Head: Yes normocephalic and Yes atraumatic Eyes EOM: EOMs intact bilaterally Resp Effort & Inspection: normal respiratory effort and able to speak in complete sentences Cardio Jugular venous distension: no JVD Skin General skin exam: turgor normal Rashes: no rashes Neuro General: patient oriented x3 Extrem Other: Evaluation of Left Upper Extremity: The patient is alert, oriented, and in no acute distress Neuro: Median, Ulnar, Radial nerves motor and sensory intact and sensation is normal to the tips of all digits Vascular: Cap refill brisk ROM: He can make a fist and extend all his digits No locking or catching Skin: No lacerations or abrasions. General: No Ecchymosis. No Erythema or evidence of infection. There is a mass on the dorsal aspect of his left 1st metacarpal, radial to the EPB tendon. This measures ~8mm in diameter. This is adherent to the underside of his skin, and is mobile with the skin. No overlying skin changes. This is mildly tender to palpation Psych Appearance: grossly normal Affect: normal affect Attitude: cooperative Assessment & Plan Assessment & Plan (1) Subcutaneous mass of left thumb: Code(s): R22.32 - Localized swelling, mass and lump, left upper limb Plan Assessment & Plan: 1. Left thumb soft tissue mass Measuring ~8mm in diameter I educated him about this condition I discussed operative and non-operative treatment options The patient would like to proceed with surgery The risks and benefits of operative treatment were discussed with the patient and the patient wishes to proceed with surgery. These risks include, but are not limited to risk of damage to blood vessels, nerves, tendons, infection, recurrence, incomplete relief of preoperative symptoms, persistent pain, possible need for further surgery and the risks associated with regional blocks and anesthesia. The plan is to take the patient to the operating room sometime on 07/09/23 for the following procedures: 1. Left thumb excision of mass, under general All of the preoperative paperwork including the consent was reviewed today. All the patient's questions were answered. 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 Coding Level of Care Code Est Pt Level 4 (06991) Diagnoses Subcutaneous mass of left thumb R22.32
== END 2023-06-30 12:59 | disposition home or self-care (01) ==
PROVIDERS: PCP Internal Medicine; Visit Provider Orthopaedic Surgery
DX: R22.32 Localized swelling, mass and lump, left upper limb (principal)
CPT/HCPCS: 99214

== ENCOUNTER 2023-06-30 12:17 | Outpatient (REF) | payer OTHER, SELFPAY ==
--- NOTE | ~2023-06-30 | XR_ITS ---
EXAMINATION: XR LUMBOSACRAL SPINE CLINICAL INFORMATION: Low back pain unspecified. COMPARISON: [facility] of May 20, 2012 TECHNIQUE: 3 views of the lumbosacral spine. FINDINGS: Degenerative changes with sclerosis and narrowing in the bilateral sacroiliac joints. Facet arthritis in the [id number]-vmrkh lumbar spine. Degenerative changes in the imaged lower thoracic spine. Advanced multilevel lumbar spondylosis with moderate loss of disc space height at L5-S1. XR/XR lumbar spine 2-3V IMPRESSION: Advanced multilevel lumbar spondylosis with moderate loss of disc space height at L5-S1.
== END 2023-06-30 12:18 | disposition home or self-care (01) ==
LOC: HO.XRAY 12:17
PROVIDERS: PCP Internal Medicine; Visit Provider Orthopaedic Surgery
DX: M54.50 Low back pain, unspecified (principal)
CPT/HCPCS: 72100

== ENCOUNTER 2023-07-09 05:43 | Day surgery (SDC) | payer OTHER, SELFPAY ==
[2023-07-07 09:53] VITALS: BMI 32.6
--- NOTE | 2023-07-08 11:34 | HO.ANESPROP2 ---
Documented by User: Richa Kirby NP 07/08/23 11:34 HPI - Anesthesia Eval Consult details Narrative: 53yo M for Left thumb Excision Ganglion biopsy PMFSH Active Problems Active Problems: All Active Problems (Updated 06/30/23 @ 13:02 by Onofre Alfaro) Subcutaneous mass of left thumb (Acute) Epidermal cyst (Acute) Low back pain (Acute) Tendon cysts (Acute) Blood pressure elevated without history of HTN (Acute) Sexually transmitted disease exposure (Acute) COVID-19 virus infection (Acute) Tubular adenoma of colon (Acute) Annual physical exam (Acute) Internal hemorrhoids (Acute) Diverticulosis large intestine w/o perforation or abscess w/o bleeding (Acute) Tubular adenoma (Acute) GERD (gastroesophageal reflux disease) (Acute) Obesity (Acute) Impaired fasting glucose (Acute) Past Medical History Medical History (Updated 06/30/23 @ 13:02 by Onofre Alfaro) Vertigo Carpal tunnel syndrome GERD (gastroesophageal reflux disease) Obesity Impaired fasting glucose Family History Family History Unknown No family history of colorectal cancer Surgical History Surgical History (Updated 07/07/23 @ 09:50 by Darline Villanueva RN) H/O colonoscopy Social History Social History Household Members: Spouse and Children Housing: House Are you a primary health and social care teacher to a significant other at home: No Do you presently have visiting nurse or other home services: No Alcohol intake: current Alcohol intake frequency: holidays/special occasions only Alcohol type: wine Comment: 2x a month 1-2 glasses Patient Tobacco Use Status: Never used Tobacco e-Cigarette/Vaping Use: Never Used Second Hand Smoke Exposure: No Use of substances other than those prescribed or required for medical reasons: No Are you DNR?: No Advance Directives: No Advance Directives Information Provided: Yes service: No Current occupational status: employed 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, 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 Current occupational exposures/hazards: Yes Cognitive needs: No Hearing needs: No Vision needs: Yes Meds Allergies Allergy/AdvReac Type Severity Reaction Status Date / Time No Known Allergies Allergy Verified 05/27/23 08:38 Exam Height,Weight and Vital Signs: Height 5 ft 6 in Weight 91.626 kg Assessment and Plan Assessment Anesthesia Assessment: Chart Reviewed Documented by User: Marvin Romano MD 07/09/23 07:36 PMF Past Medical History Medical History (Updated 06/30/23 @ 13:02 by Onofre Alfaro) Vertigo Carpal tunnel syndrome GERD (gastroesophageal reflux disease) Obesity Impaired fasting glucose Family History Family History Unknown No family history of colorectal cancer Family history of problems with anesthesia: No Surgical History Surgical History (Updated 07/07/23 @ 09:50 by Darline Villanueva RN) H/O colonoscopy History of Problems with Anesthesia: No Social History Social History Household Members: Spouse and Children Housing: House Are you a primary health and social care teacher to a significant other at home: No Do you presently have visiting nurse or other home services: No Alcohol intake: current Alcohol intake frequency: holidays/special occasions only Alcohol type: wine Comment: 2x a month 1-2 glasses Patient Tobacco Use Status: Never used Tobacco e-Cigarette/Vaping Use: Never Used Second Hand Smoke Exposure: No Use of substances other than those prescribed or required for medical reasons: No Are you DNR?: No Advance Directives: No Advance Directives Information Provided: Yes service: No Current occupational status: employed 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, 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 Current occupational exposures/hazards: Yes Cognitive needs: No Hearing needs: No Vision needs: Yes Meds Allergies Allergy/AdvReac Type Severity Reaction Status Date / Time No Known Allergies Allergy Verified 05/27/23 08:38 Exam Airway Mallampati Class: I TM Dist: >3cm Neck ROM: Full Loose/Missing/Broken Teeth: No Heart: ok Lungs: ok Assessment and Plan Assessment Anesthesia Assessment: Anesthesia Plan Discussed Final Anesthetic Review Family History of Problems with Anesthesia: No History of Problems with Anesthesia: No NPO: Yes ASA Class: II Final Preanesthetic Review: No Changes in Pt Med Stat, Meds/Allgs Chart Reviewed, Consent Obtained/Reviewed and Anes Risks/Benef Reviewed Patient Risk: Low Procedure Risk: Low Anesthetic Plan Anesthetic Plan: GA and Agree w/ Assess. and Plan Disposition: Standard PACU
[2023-07-09 06:08] VITALS: BMI 33.9
[2023-07-09 06:11] VITALS: BP 120/78; PULSE 63; RESP 18; TEMP 36.2; O2SAT 97
[2023-07-09] MEDS: Lactated Ringers 1,000 ML 100 ML IVCONT (06:28)
--- NOTE | 2023-07-09 07:47 | MHC.SHP ---
Pre-Procedural Eval Section A - 24 Hr Update-Section A only Date of Service: 07/09/23 The patient is an INPATIENT: No Changes since office visit: No Cold of Flu in the past 2 weeks, No New Medical Problems, No Changes in Medication and No Patient answered all questions The patient has been examined within 24 hours of the surgical procedure. The History & Physical has been completed within 30 days and I have reviewed it.: Yes Section B - Complete if H&P > 30 days Chief Complaint: Pain in left hand Allergies: Allergies Allergy/AdvReac Type Severity Reaction Status Date / Time No Known Allergies Allergy Verified 05/27/23 08:38 Plan I have reviewed the history and physical and performed a pertinent physical examination on my patient. No changes have occurred unless specified. Time Spent With Patient Time: Total time managing care of this patient today ____ minutes.
--- NOTE | 2023-07-09 07:47 | W.PM.OPN ---
Operative Note Operative Note Date of Service: 07/09/23 Narrative: Operative Note Narrative: Preop diagnosis: Left dorsal thumb mass Postop diagnosis: Same Procedure: Left dorsal thumb mass excisional biopsy Surgeon: Madeline Colorado MD Anesthesia: General Anesthesia Findings: 1 cm diameter circular shaped mass measuring perhaps 6 mm in thickness, dark purple in color possibly consistent with a pseudoaneurysm Implants: None Tourniquet time: 6 minutes EBL: 5.0 ml Specimen: Left dorsal thumb mass for histopathology Drains: None Complications: None Disposition: Brought to the recovery room in stable condition Plan: Follow-up in 10-14 days for wound check, suture removal and to check pathology Indications: The patient is a 53 year old man with a soft tissue mass over the dorsal aspect of his left 1st metacarpal . The risks and benefits of operative treatment, including but not limited to risk of damage to blood vessels, nerves, tendons, infection, recurrence, persistent pain or numbness, incomplete resolution of preoperative symptoms, or need for further surgery were discussed with the patient and they wished to proceed with surgery. Procedure: Once consent was obtained patient was brought back to the operating suite and placed in the operating table in a supine position. . Perioperative antibiotics and anesthesia was administered by the anesthesia team. A tourniquet was applied to the proximal aspect of the left upper extremity and the limb was prepped and draped in a standard surgical fashion. The limb was elevated exsanguinated with Esmarch bandage and the tourniquet inflated to 250 mm of mercury for a total tourniquet time of 6 minutes. A 2 cm longitudinal incision was made centered over the mass over the dorsal aspect of the left 1st metacarpal. The incision was made through the skin to the subcutaneous tissues using a 15. Blade. I then dissected down to the level of the soft tissue mass using tenotomy scissors. The mass was dark purple, circular measuring about 1 cm in diameter. There were some small vessels entering and exiting. I carefully dissected the mass free from the subcutaneous tissue. I attempted to preserve the vessel passing adjacent to it. The mass was removed and placed on the back table to be sent for histopathology. No other masses were identified. At this point the tourniquet was deflated and hemostasis obtained with a brief period of local pressure and bipolar electrocautery. The wound was copiously irrigated with normal saline. The skin edges were reapproximated with 5-0 nylon suture. The wound was infiltrated with some 0.5% ropivacaine for postop pain control and a sterile dressing was applied. The patient appears to have tolerated the procedure well and with no complications. All digits were well vascularized conclusion of the case.
[2023-07-09 08:45] VITALS: BP 115/77; PULSE 68; RESP 14; TEMP 36.7; O2SAT 94
[2023-07-09 08:50] VITALS: BP 107/67; PULSE 60; RESP 14; O2SAT 93
[2023-07-09 08:55] VITALS: BP 99/65; PULSE 68; RESP 14; O2SAT 97
[2023-07-09 09:00] VITALS: BP 108/72; PULSE 67; RESP 14; O2SAT 96
--- NOTE | 2023-07-09 09:03 | MHC.SHP ---
Pre-Procedural Eval Section A - 24 Hr Update-Section A only Date of Service: 07/09/23 The patient is an INPATIENT: No Changes since office visit: No Cold of Flu in the past 2 weeks, No New Medical Problems, No Changes in Medication and No Patient answered all questions The patient has been examined within 24 hours of the surgical procedure. The History & Physical has been completed within 30 days and I have reviewed it.: Yes Section B - Complete if H&P > 30 days Chief Complaint: Left distal radius fracture Allergies: Allergies Allergy/AdvReac Type Severity Reaction Status Date / Time No Known Allergies Allergy Verified 05/27/23 08:38 Plan I have reviewed the history and physical and performed a pertinent physical examination on my patient. No changes have occurred unless specified. Time Spent With Patient Time: Total time managing care of this patient today ____ minutes.
[2023-07-09 09:15] VITALS: BP 121/78; PULSE 51; RESP 14; TEMP 36.7; O2SAT 97
== END 2023-07-09 09:46 | disposition home or self-care (01) ==
PROVIDERS: PCP Internal Medicine; Visit Provider Orthopaedic Surgery
PROC: (CPT 26111; principal; 2023-07-09 07:30)
DX: D18.01 Hemangioma of skin and subcutaneous tissue (principal); M79.642 Pain in left hand; G56.00 Carpal tunnel syndrome, unspecified upper limb; R73.01 Impaired fasting glucose
CPT/HCPCS: 26111; 88304; 88307; J0690; J2405; J2704; J2795; J3010

== ENCOUNTER → 2023-07-09 05:43 | Outpatient (BNV) | payer OTHER, SELFPAY | PROVIDERS: PCP Internal Medicine; Visit Provider Orthopaedic Surgery | DX: R22.32 Localized swelling, mass and lump, left upper limb (principal) | CPT/HCPCS: 26115 ==

== ENCOUNTER 2023-07-22 13:48 | Outpatient (AMB) | payer OTHER, SELFPAY ==
--- NOTE | 2023-07-22 13:53 | MHC.OFFVIS ---
Intake Vital Signs 07/22/23 13:54 Height 5 ft 7 in Weight 200 lb BMI 31.3 Intake Visit Reasons: PO LT Thumb exc biopsy 07/09/23 AR Intake Note: Richard 53 yr old Right hand dominant male, presents today for his PO visit for his left Thumb exc biopsy 07/09/23 AR. States he is doing well he has no problems. Allergies No Known Allergies Allergy (Verified 07/22/23 13:55) HPI PO LT Thumb exc biopsy 07/09/23 AR HPI Details Richard is a 53 year old 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 man who returns S/P left thumb glomus tumor excision, DOS: 07/09/23 He says he is doing well and has no complaints. he says his hypersensitivity and pain have improved as well. He is happy with the results of his surgery [facility] Medical History Vertigo Carpal tunnel syndrome GERD (gastroesophageal reflux disease) Obesity Impaired fasting glucose Surgical History H/O colonoscopy Family History Unknown No family history of colorectal cancer Social History Household Members: Spouse and Children Housing: House Are you a primary grounds caretaker to a significant other at home: No Do you presently have visiting nurse or other home services: No Alcohol intake: current Alcohol intake frequency: holidays/special occasions only Alcohol type: wine Comment: 2x a month 1-2 glasses Patient Tobacco Use Status: Never used Tobacco e-Cigarette/Vaping Use: Never Used Second Hand Smoke Exposure: No service: No Current occupational status: employed 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 Sutures removed and Steri-Strips applied He can make a fist and extend all his digits No pain when making a tight fist. Pain with full active range of motion of his wrist. Sensation is intact Cap refill is brisk Patholgy report: 07/09/23 Diagnosis Soft tissue, left thumb mass, excision: Glomangioma with organizing thrombus Psych Appearance: grossly normal Affect: normal affect Attitude: cooperative Assessment & Plan Assessment & Plan (1) Glomangioma: Comment: Left thumb, S/P excision 07/09/23 Code(s): D18.00 - Hemangioma unspecified site Plan Assessment & Plan: 1. Left thumb glomangioma (glomus tumor) S/P release, DOS: 07/09/23 The patient appears to be doing well post-operatively The painful symptoms that he had had before surgery have completely resolved. 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 He would like to go back to work, and feels like he can perform all of his duties safely. He was given a note to return to work on fully duty on 07/27/23 He can follow up prn Scribed for Madeline Colorado MD by Onofre Alfaro, medical lead, on 07/22/23 at 2:05 PM, EST. Coding Level of Care Code Global (92650) Diagnoses Glomangioma D18.00
[2023-07-22 13:54] VITALS: BMI 31.3
== END 2023-07-22 14:17 | disposition home or self-care (01) ==
PROVIDERS: PCP Internal Medicine; Visit Provider Orthopaedic Surgery
DX: D18.00 Hemangioma unspecified site (principal)
CPT/HCPCS: 99024

== ENCOUNTER → 2023-07-22 13:48 | Outpatient (BNVA) | payer OTHER, SELFPAY | PROVIDERS: PCP Internal Medicine; Visit Provider Orthopaedic Surgery ==

== ENCOUNTER 2024-02-06 10:36 | Outpatient (REF) | payer OTHER, SELFPAY ==
[2024-02-06 10:57] LABS: MANUAL DIFF FLAG NO
[2024-02-06 11:20] LABS: Appearance Urine Clear; Color Urine Yellow; Glucose Urine UA Negative (Negative); Leukocyte Esterase Urine Negative (Negative); Nitrite Urine Negative (Negative); PH 6.5 (5.0-9.0); Urine Blood Negative (Negative); Urine Ketones Negative (Negative); Urine Protein Negative (Neg-Trace)
[2024-02-06 11:36] LABS: Basophils Percent Auto 0.7 % (0-2); Eosinophils Absolute Auto 0.1 X10*3/uL (0.0-0.4); Eosinophils Percent Auto 1.3 % (0-4); Hemoglobin 13.9 g/dl (14.0-18.0); Imm Gran Abs Auto 0.01 X10*3/uL (0.00-0.03); Imm Gran Pct Auto 0.2 % (0.0-0.4); Lymphocytes Absolute Auto 1.7 X10*3/uL (1.2-4.9); Lymphocytes Percent Auto 37.1 % (20-40); Mean Corpuscular HGB Conc 34.8 g/dl (31.0-36.0); Mean Corpuscular Hemoglobin 29.3 pg (27.0-33.0); Mean Corpuscular Volume 84.4 fL (80.0-98.0); Mean Platelet Volume 11.8 fL (9.4-12.4); Monocytes Absolute Auto 0.4 X10*3/uL (0.1-1.2); Monocytes Percent Auto 9.2 % (2-11); Neutrophils Absolute Auto 2.3 x10*3/uL (2.0-8.3); Neutrophils Percent Auto 51.5 % (45-73); Platelet Count 154 X10*3/uL (160-400); Red Blood Count 4.74 X10*6/uL (4.60-5.80); Red Cell Distribution Width 12.5 % (11.0-16.0); White Blood Count 4.6 X10*3/uL (4.8-10.8)
[2024-02-06 11:37] LABS: Estimated Average Glucose 140 mg/dL; Hemoglobin A1c % 6.5 % (<6.0)
[2024-02-06 12:02] LABS: Alanine Aminotransferase 30 U/L (0-40); Albumin Level 4.2 g/dL (3.5-5.0); Alkaline Phosphatase 86 U/L (39-117); Anion Gap 10 (12-20); Aspartate Amino Transferase 23 U/L (5-37); Bilirubin Total 0.9 mg/dL (0.0-1.0); Blood Urea Nitrogen 13 mg/dL (9-16); Calcium 9.8 mg/dL (8.4-10.2); Carbon Dioxide 27 mmol/L (22-29); Chloride 105 mmol/L (96-108); Estimated Glomerular Filt Rate > 60; Glucose Random 164 mg/dL (60-115); Potassium 4.3 mmol/L (3.3-5.1); Sodium 138 mmol/L (135-145); Total Protein 7.5 g/dL (6.5-8.0)
== END 2024-02-06 10:37 | disposition home or self-care (01) ==
LOC: HO.LAB 10:36
PROVIDERS: PCP Internal Medicine; Visit Provider Internal Medicine
DX: R73.01 Impaired fasting glucose (principal); R39.9 Unspecified symptoms and signs involving the genitourinary system
CPT/HCPCS: 36415; 80053; 81003; 83036; 85025

== ENCOUNTER 2024-02-25 14:07 | Outpatient (AMB) | payer OTHER, SELFPAY ==
--- NOTE | 2024-02-25 14:09 | A.OFFPC_ITS ---
Vital Signs 02/25/24 14:11 Height 5 ft 7 in Weight 215 lb 6 oz BMI 33.7 BP 120/72 Blood Pressure Location Lt brachial Position Sitting Pulse 80 Pulse Source Pulse Oximeter Pulse Oximetry (%) 96 Oxygen Delivery Method Room Air Intake Visit Reasons: DM Follow Up Intake Note: Patient is here to follow up on DM and lab results. Pt decline flu shot today. Electrophysiology Tech Required: No Refresh Technician: Not Required per policy Accompanied by: Self / Same As Patient Allergies No Known Allergies Allergy (Verified 02/25/24 14:11) Medication List - Last Reconciled 02/25/24 by Venu Barclay MD blood pressure monitor (Blood Pressure Kit) As directed hydrocodone-acetaminophen 5-325 mg 1 tab PO Q4-6H PRN naproxen 500 mg PO Q8-12H PRN triamcinolone acetonide 0.5% 1 appl topical BID Tobacco use date assessed: 02/25/24 Dental Screening Dental Screen Date: 02/25/24 Did you have a dental visit in the last 12 months?: No Did you have a dental problem in the last 6 months where you did not have access to dental care?: No Was dental information given to patient?: No HPI DM Follow Up HPI Details 54-year-old obese male(noted 15 lb weigh t gain) with impaired glucose tolerance low back pain last seen for physical in April noted to have an elevated blood pressure patient is here for follow-up. Colon test 2020. Patient was seen by orthopedics for a left thumb mass had excisional biopsy in June 2023. Diagnosis of left thumb globe angioma glomus tumor status post release. With low back pain x-ray done showing advanced multilevel spondylosis lumbar with moderate loss of disc space L5-S1. [facility] Medical History (Updated 02/25/24 @ 14:40 by Venu Barclay MD) Vertigo Carpal tunnel syndrome GERD (gastroesophageal reflux disease) Obesity Surgical History (Updated 02/25/24 @ 14:14 by TOMY Triplett) History of lumpectomy H/O colonoscopy Family History Unknown No family history of colorectal cancer Social History Household Members: Spouse and Children Housing: House Are you a primary doggy daycare activities director to a significant other at home: No Do you presently have visiting nurse or other home services: No Alcohol intake: current Alcohol intake frequency: holidays/special occasions only Alcohol type: wine Comment: 2x a month 1-2 glasses Patient Tobacco Use Status: Never used Tobacco e-Cigarette/Vaping Use: Never Used Second Hand Smoke Exposure: No service: No Current occupational status: employed 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 1. Little interest or pleasure in doing things: not at all 2. Feeling down, depressed, or hopeless: not at all 3. Trouble falling or staying asleep, or sleeping too much: not at all 4. Feeling tired or having little energy: not at all 5. Poor appetite or overeating: not at all 6. Feeling bad about yourself - or that you are a failure or have let yourself or your family down: not at all 7. Trouble concentrating on things, such as reading the newspaper or watching television: not at all 8. Moving or speaking so slowly that other people could have noticed. Or the opposite - being so fidgety or restless that you have been moving around a lot more than usual: not at all 9. Thoughts that you would be better off or of hurting yourself in some way: not at all Total score: 0 Depression Screening Interpretation: Negative Depression Screening Done: Yes Source: Developed by Drs. Bernard Oh, Cecily Mckeon, Warren Bonner and colleagues, with an educational cornell from [employer]. Thrive Questionnaire Date Thrive assessed: 02/25/24 I am a: Patient What is your living situation today?: I have a steady place to live Within the past 12 months, did the food you bought not last and you didn't have the money to get more?: Never true Within the past 12 months, did you worry whether your food would run out before you got money to buy more?: Never true Do you have trouble paying for medicines?: No Do you have trouble getting transportation to medical appointments?: No Do you have trouble paying your heating and electricity bill?: No Do you have trouble taking care of your child, family member or friend?: No Do you have trouble with day-to-day activities such as bathing, preparing meals, shopping, managing finances, etc.?: No Are you currently unemployed and looking for a job?: No Are you interested in more education?: No Currently or been in a relationship where the following occur: No concerns reported THRIVE Score: 0 AUDIT C Alcohol Use Questionnaire (AUDIT-C) 1. How often do you have a drink containing alcohol?: Monthly or less 2. How many drinks containing alcohol do you have on a typical day when you are drinking?: 1 or 2 Total Score: 1 BLANCA-7 AMB Questionnaire BLANCA-7 Date BLANCA - 7 assessed: 02/25/24 Feeling nervous, anxious, or on edge: 0 = Not at all Not being able to stop or control worryin = Not at all Worrying too much about different things: 0 = Not at all Trouble relaxin = Not at all Being so restless that it is hard to sit still: 0 = Not at all Becoming easily annoyed or irritable: 0 = Not at all Feeling afraid as if something awful might happen: 0 = Not at all Total BLANCA-7 score (0-4 normal; 5-9 mild; 10-14 moderate; 15-21 severe): 0 Source: Developed by Drs. Bernard Oh, Cecily Mckeon, Warren Bonner and colleagues, with an educational cornell from [employer]. Physical exam (Primary Care) Vital Signs: Last Vital Signs Pulse 80 02/25/24 14:11 BP 120/72 02/25/24 14:11 Pulse Ox 96 02/25/24 14:11 Oxygen Delivery Method Room Air 02/25/24 14:11 BMI result Body Mass Index 33.7 Tobacco/Smoking Status: Tobacco use Status Tobacco use date assessed 02/25/24 02/25/24 14:13 Patient Tobacco Use Status Never used Tobacco 02/25/24 14:13 e-Cigarette/Vaping Use Never Used 02/25/24 14:13 PHQ-9: PHQ-9 Score PHQ-9: Total score 0 02/25/24 14:13 Depression Screening Interpretation: Negative Thrive Assessment: Date of Thrive Assessment Date Thrive assessed 02/25/24 02/25/24 14:13 Currently or been in a relationship where the following occur: No concerns reported Const General: alert; No acute distress Eyes Conjunctivae: conjunctivae normal Resp Auscultation: clear to auscultation bilaterally Cardio Rate: regular rate Rhythm: regular rhythm GI Inspection: Yes normal to inspection Extrem General: Yes normal to inspection and No edema Coding Level of Care Code Est Pt Level 4 (88633) Diagnoses Type 2 diabetes mellitus with hyperglycemia E11.65 Class 1 obesity due to excess calories without serious comorbidity with body mass index (BMI) of 31.0 to 31.9 in adult E66.09; Z68.31 Obesity type: due to excess calories Obesity classification: adult class 1 (BMI 30 - 34.9) Serious obesity comorbidity presence: without serious comorbidity Body mass index: BMI 31.0-31.9 Gastroesophageal reflux disease without esophagitis K21.9 Esophagitis presence: without esophagitis Degeneration of intervertebral disc of lumbar region with discogenic back pain M51.360 Disc-related pain type: discogenic back pain only Assessment & Plan Assessment & Plan (1) Type 2 diabetes mellitus with hyperglycemia: Code(s): E11.65 - Type 2 diabetes mellitus with hyperglycemia Category: Medical Plan: Decrease the amount of carbohydrate intake, pasta, bread, rice and potatoes are all sugar and that is aside from all the sweet stuff, remember that fruits are good but they are Sweet also. Hemoglobin A1c goal of less than 6.5. (2) Obesity: Code(s): E66.9 - Obesity, unspecified Category: Medical Qualifiers: Obesity type: due to excess calories Obesity classification: adult class 1 (BMI 30 - 34.9) Serious obesity comorbidity presence: without serious comorbidity Body mass index: BMI 31.0-31.9 Qualified Code(s): E66.09 - Other obesity due to excess calories; Z68.31 - Body mass index [BMI] 31.0-31.9, adult Plan: Diet and exercise (3) GERD (gastroesophageal reflux disease): Code(s): K21.9 - Gastro-esophageal reflux disease without esophagitis Category: Medical Qualifiers: Esophagitis presence: without esophagitis Qualified Code(s): K21.9 - Gastro-esophageal reflux disease without esophagitis Plan: Avoid the foods that causes that usually spicy foods, tomato products, juices, coffee, soda and foods that your sensitive to. After eating do not lie down, allow 3-4 hours before in lie down. And keep the head of bed above 30 degrees to avoid the acid from going up. (4) Lumbar degenerative disc disease: Code(s): M51.369 - Other intervertebral disc degeneration, lumbar region without mention of lumbar back pain or lower extremity pain Category: Medical Qualifiers: Disc-related pain type: discogenic back pain only Qualified Code(s): M51.360 - Other intervertebral disc degeneration, lumbar region with discogenic back pain only Plan: Diet and exercise, lose the weight Orders: Orders Complete Blood Count Auto Diff 3 Months E11.65 - Type 2 diabetes mellitus with hyperglycemia Vitamin B12 and Folate 3 Months E11.65 - Type 2 diabetes mellitus with hyperglycemia Prostate Specific Antigen Scr 3 Months E11.65 - Type 2 diabetes mellitus with hyperglycemia Reticulocyte Count 3 Months E11.65 - Type 2 diabetes mellitus with hyperglycemia Ferritin 3 Months E11.65 - Type 2 diabetes mellitus with hyperglycemia IRON PROFILE 3 Months E11.65 - Type 2 diabetes mellitus with hyperglycemia Comprehensive Met. Panel 3 Months E11.65 - Type 2 diabetes mellitus with hyperglycemia Creatinine Urine 3 Months E11.65 - Type 2 diabetes mellitus with hyperglycemia Microalbumin, Random (w Creat) 3 Months E11.65 - Type 2 diabetes mellitus with hyperglycemia Hemoglobin A1c 3 Months E11.65 - Type 2 diabetes mellitus with hyperglycemia Free T4 (Free Thyroxine) 3 Months E11.65 - Type 2 diabetes mellitus with hyperglycemia Thyroid Stimulating Hormone 3 Months E11.65 - Type 2 diabetes mellitus with hyperglycemia Lipid Panel 3 Months E11.65 - Type 2 diabetes mellitus with hyperglycemia, E78.00 - Pure hypercholesterolemia, unspecified UA w Microscopic 3 Months E11.65 - Type 2 diabetes mellitus with hyperglycemia Referrals Nutrition/Dietitian Referral E11.65 - Type 2 diabetes mellitus with hyperglycemia Medications: Discontinued hydrocodone-acetaminophen 5-325 mg Partial Fill upon patient request. Discontinued Reason: Doctor's Order 1 tab PO Q4-6H PRN 5 tabs 0RF pain naproxen Discontinued Reason: Doctor's Order 500 mg PO Q8-12H PRN 20 tabs 0RF pain (scale score 4-6)
[2024-02-25 14:11] VITALS: BP 120/72; PULSE 80; O2SAT 96; BMI 33.7
== END 2024-02-25 14:57 | disposition home or self-care (01) ==
PROVIDERS: PCP Internal Medicine; Visit Provider Internal Medicine
DX: E11.65 Type 2 diabetes mellitus with hyperglycemia (principal); E66.09 Other obesity due to excess calories; Z68.31 Body mass index [BMI] 31.0-31.9, adult; K21.9 Gastro-esophageal reflux disease without esophagitis; M51.360 Other intervertebral disc degeneration, lumbar region with discogenic back pain only

== ENCOUNTER → 2024-02-25 14:07 | Outpatient (BNVA) | payer OTHER, SELFPAY | PROVIDERS: PCP Internal Medicine; Visit Provider Internal Medicine ==

== ENCOUNTER 2024-12-09 11:40 | Outpatient (REF) | payer OTHER, SELFPAY ==
--- OUTSIDE RECORDS SUMMARY | 2024-12-09 11:42 | XMS_ITS | Clinical Summary ---
Author Organization [facility] Address [address] [address] Phone Care Team Providers Care Software Development Advisor Name Role Phone Venu Barclay MD Primary Care Provider [phone] Social History Tobacco Use Types Packs/Day Years Used Date Smoking Tobacco: Never Assessed Education Answer Date Recorded Are you interested in more education? Not on alia e 09/05/2022 Are you concerned about learning? Not on file 09/05/2022 No 09/05/2022 No 09/05/2022 Digital Access Answer Date Recorded No 10/04/2022 No 10/04/2022 No 10/04/2022 Reliable internet access at home? Not on file 10/04/2022 Device with a working camera? Not on file Sex and Gender Information Value Date Recorded Sex Assigned at Not on file Legal Sex Male 4:34 PM EST Gender Identity Not on file Sexual Orientation Not on file Plan of Treatment Health Maintenance Due Date Last Done Comments LIPID PANEL 1969 DEPRESSION SCREENING 1981 SMOKING Hx and SMOKELESS TOB ACCO SCREENING 1982 HEPATITIS C SCREENING 1987 HIV ONE-TIME SCREENING (18-6 5 YEARS) 1987 COLOGUARD 2014 COLONOSCOPY 2014 COLORECTAL CANCER SCREENING 2014 FIT TEST 2014 FOBT 2014 SIGMOIDOSCOPY 2014 VIRTUAL COLONOSCOPY 2014 PNEUMOCOCCAL VACCINES (50+ y ears) (1 of 1 - PCV) 2019 ZOSTER VACCINES (1 of 2) 2019 COVID-19 VACCINE (2 - 2023-2 5 season) 2024 09/01/2020 Adult Td,Tdap Booster 05/28/2028 05/28/2018 HEPATITIS A VACCINES Aged Out No long er eligible based on patient's age to complete this topic HIB VACCINES Aged Out No longer eligi ble based on patient's age to complete this topic MENINGOCOCCAL VACCINES (ACWY) Aged Out No longer eligible based on patient's age to complete this topic MENINGOCOCCAL VACCINES (B) Aged Out N o longer eligible based on patient's age to complete this topic Medical Devices Not on file Insurance [place] [address] [place], [place] [address] [place], [place] [address] [place] [address] [place] [address] [facility] Care Teams Software Development Advisor Relationship Specialty Start Date End Date Venu Barclay MD [address] [place] [phone] PCP - General Internal Medicine 06/23/19 Additional Source Comments The information contained in this document represents components of the legal health record. It is not the complete legal health record.[facility]
[2024-12-09 11:58] LABS: MANUAL DIFF FLAG NO
[2024-12-09 12:20] LABS: Appearance Urine Clear; Glucose Urine UA Negative (Negative); PH 7.0 (5.0-9.0); Specific Gravity - Urine 1.015 (1.005-1.025)
[2024-12-09 12:23] LABS: Hematocrit 41.0 % (42.0-52.0); Hemoglobin 14.5 g/dl (14.0-18.0); Imm Gran Abs Auto 0.02 X10*3/uL (0.00-0.03); Imm Gran Pct Auto 0.4 % (0.0-0.4); Lymphocytes Absolute Auto 1.5 X10*3/uL (1.2-4.9); Mean Corpuscular HGB Conc 35.4 g/dl (31.0-36.0); Mean Corpuscular Hemoglobin 29.4 pg (27.0-33.0); Mean Corpuscular Volume 83.2 fL (80.0-98.0); NRBC Abs Auto 0.000 X10*3/uL (0.0-0.012); NRBC Pct Auto 0.0 /100WBC (0.0-0.2); Platelet Count 150 X10*3/uL (160-400); Red Blood Count 4.93 X10*6/uL (4.60-5.80); Reticulocytes Absolute 0.082 X10*6/uL (0.026-0.095); White Blood Count 4.9 X10*3/uL (4.8-10.8)
[2024-12-09 12:39] LABS: Hemoglobin A1C 174.3460 umol/L; Total Hemoglobin (HGBA1C) 3780.5603 umol/L
[2024-12-09 12:49] LABS: Microalbum/Creatinine Ratio Ur 12.4 ug/mg cr (<30)
[2024-12-09 13:24] LABS: Alanine Aminotransferase 29 U/L (0-40); Albumin Level 4.6 g/dL (3.5-5.0); Alkaline Phosphatase 80 U/L (39-117); Anion Gap 11 (12-20); Aspartate Amino Transferase 34 U/L (5-37); Blood Urea Nitrogen 17 mg/dL (9-16); Calcium 9.6 mg/dL (8.4-10.2); Carbon Dioxide 28 mmol/L (22-29); Chloride 107 mmol/L (96-108); Cholesterol 145 mg/dL (<200); Estimated Glomerular Filt Rate 60; Ferritin 91 ng/mL (20-250); Free T4 (Free Thyroxine) 1.06 ng/dL (0.71-1.85); HDL Cholesterol 37 mg/dL (>40); Iron 170 mcg/dL (45-160); Percent Iron Saturation 63 % (15-50); Potassium 4.6 mmol/L (3.3-5.1); Sodium 141 mmol/L (135-145); Thyroid Stimulating Hormone 2.00 uIU/mL (0.32-4.0); Total Iron Binding Capacity 268 mcg/dL (228-428); Total Protein 7.8 g/dL (6.5-8.0); Triglycerides 117 mg/dL (<150); Unsaturated Iron Binding 98 ug/dL
[2024-12-09 13:47] LABS: Folate 14.7 ng/mL (> or = 4.0); Vitamin B12 480 pg/mL (200-900)
== END 2024-12-09 11:41 | disposition home or self-care (01) ==
LOC: HO.LAB 11:40
PROVIDERS: PCP Internal Medicine; Visit Provider Internal Medicine
DX: Z00.00 Encounter for general adult medical examination without abnormal findings (principal); Z23 Encounter for immunization; E11.65 Type 2 diabetes mellitus with hyperglycemia; E66.09 Other obesity due to excess calories; Z68.31 Body mass index [BMI] 31.0-31.9, adult; K21.9 Gastro-esophageal reflux disease without esophagitis; B35.3 Tinea pedis; E78.00 Pure hypercholesterolemia, unspecified; Z12.5 Encounter for screening for malignant neoplasm of prostate; Z13.31 Encounter for screening for depression; Z13.39 Encounter for screening examination for other mental health and behavioral disorders
CPT/HCPCS: 36415; 80053; 80061; 81001; 82043; 82570; 82607; 82728; 82746; 83036; 83540; 84153; 84439; 84443; 85025; 85045; 90471; 90677; 96127

== ENCOUNTER 2024-12-09 16:27 | Outpatient (AMB) | payer OTHER, SELFPAY ==
[2024-12-09 16:47] VITALS: BP 128/80; PULSE 72; RESP 18; TEMP 36.2; O2SAT 97; BMI 32.1
--- NOTE | 2024-12-09 16:47 | MHC.PC.OV ---
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 Accompanied by: Self / Same As Patient Allergies No Known Allergies Allergy (Verified 12/09/24 16:48) Medication List - Last Reconciled 12/09/24 by Venu Barclay MD blood pressure monitor (Blood Pressure Kit) As directed multivitamin 1 tab PO DAILY triamcinolone acetonide 0.5% 1 appl topical BID Tobacco use date assessed: 12/09/24 Dental Screening Dental Screen Date: 12/09/24 Did you have a dental visit in the last 12 months?: No Did you have a dental problem in the last 6 months where you did not have access to dental care?: No Was dental information given to patient?: Patient has dentist [facility] Medical History (Updated 12/09/24 @ 17:26 by Venu Barclay MD) Impaired fasting glucose Vertigo Carpal tunnel syndrome GERD (gastroesophageal reflux disease) Obesity Surgical History History of lumpectomy H/O colonoscopy Family History Unknown No family history of colorectal cancer Social History Household Members: Spouse and Children Housing: House Are you a primary manager respiratory care to a significant other at home: No Do you presently have visiting nurse or other home services: No Alcohol intake: current Alcohol intake frequency: holidays/special occasions only Alcohol type: wine Comment: 2x a month 1-2 glasses Patient Tobacco Use Status: Never used Tobacco e-Cigarette/Vaping Use: Never Used Second Hand Smoke Exposure: No service: No Current occupational status: employed 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 1. Little interest or pleasure in doing things: not at all 2. Feeling down, depressed, or hopeless: not at all 3. Trouble falling or staying asleep, or sleeping too much: not at all 4. Feeling tired or having little energy: not at all 5. Poor appetite or overeating: not at all 6. Feeling bad about yourself - or that you are a failure or have let yourself or your family down: not at all 7. Trouble concentrating on things, such as reading the newspaper or watching television: not at all 8. Moving or speaking so slowly that other people could have noticed. Or the opposite - being so fidgety or restless that you have been moving around a lot more than usual: not at all 9. Thoughts that you would be better off or of hurting yourself in some way: not at all Total score: 0 Depression Screening Interpretation: Negative Depression Screening Done: Yes Source: Developed by Drs. Bernard Oh, Cecily Mckeon, Warren Bonner and colleagues, with an educational cornell from [employer]. Thrive Questionnaire Date Thrive assessed: 12/09/24 I am a: Patient What is your living situation today?: I have a steady place to live Within the past 12 months, did the food you bought not last and you didn't have the money to get more?: Never true Within the past 12 months, did you worry whether your food would run out before you got money to buy more?: Never true Do you have trouble paying for medicines?: No Do you have trouble getting transportation to medical appointments?: No Do you have trouble paying your heating and electricity bill?: No Do you have trouble taking care of your child, family member or friend?: No Do you have trouble with day-to-day activities such as bathing, preparing meals, shopping, managing finances, etc.?: No Are you currently unemployed and looking for a job?: No Are you interested in more education?: No Currently or been in a relationship where the following occur: No concerns reported THRIVE Score: 0 AUDIT C Alcohol Use Questionnaire (AUDIT-C) 1. How often do you have a drink containing alcohol?: Monthly or less 2. How many drinks containing alcohol do you have on a typical day when you are drinking?: 1 or 2 3. How often do you have six or more drinks on one occasion?: Never Total Score: 1 BLANCA-7 AMB Questionnaire BLANCA-7 Date BLANCA - 7 assessed: 12/09/24 Feeling nervous, anxious, or on edge: 0 = Not at all Not being able to stop or control worryin = Not at all Worrying too much about different things: 0 = Not at all Trouble relaxin = Not at all Being so restless that it is hard to sit still: 0 = Not at all Becoming easily annoyed or irritable: 0 = Not at all Feeling afraid as if something awful might happen: 0 = Not at all Total BLANCA-7 score (0-4 normal; 5-9 mild; 10-14 moderate; 15-21 severe): 0 Source: Developed by Drs. Bernard Oh, Cecily Mckeon, Warren Bonner and colleagues, with an educational cornell from [employer]. Review of Systems Const Denies poor appetite and Denies weakness Eyes Denies no additional complaints ENT Reports Normal hearing present, Denies dizziness, Denies nasal congestion, Denies tinnitus and Denies sore throat Card Denies chest pain, Denies syncope, Denies rapid heart rate and Denies dyspnea Resp Denies cough and Denies dyspnea GI Denies change in stool character, Reports constipation, Denies diarrhea, Denies nausea and Denies vomiting Denies dysuria and Denies urinary frequency Neuro Reports Normal hearing present, Denies confusion, Denies dizziness, Denies syncope and Denies weakness Psych Denies confusion Physical exam (Primary Care) Vital Signs: Last Vital Signs Temp 97.1 F 12/09/24 16:47 Pulse 72 12/09/24 16:47 Resp 18 12/09/24 16:47 BP 128/80 12/09/24 16:47 Pulse Ox 97 12/09/24 16:47 Oxygen Delivery Method Room Air 12/09/24 16:47 BMI result Body Mass Index 32.1 Tobacco/Smoking Status: Tobacco use Status Tobacco use date assessed 12/09/24 12/09/24 16:49 Patient Tobacco Use Status Never used Tobacco 12/09/24 16:49 e-Cigarette/Vaping Use Never Used 12/09/24 16:49 PHQ-9: PHQ-9 Score PHQ-9: Total score 0 12/09/24 16:55 Depression Screening Interpretation: Negative Thrive Assessment: Date of Thrive Assessment Date Thrive assessed 12/09/24 12/09/24 16:49 Currently or been in a relationship where the following occur: No concerns reported Const General: alert and awake; No confusion Orientation/consciousness: No confusion HENMT Head: Yes normocephalic Ears: external ears normal and TM's normal bilaterally Face and sinus: Yes normal facial exam Mouth: moist mucous membranes Throat: Yes tonsils normal Eyes Conjunctivae: conjunctivae normal Pupils: Equal, round and reactive pupils present and Pupil accommodation reflex normal Direct Ophthalmoscopy: normal light reflex Neck Neck: No lymphadenopathy Thyroid: Thyroid normal Chest Chest palpation & inspection: normal inspection of the chest Resp Effort & Inspection: normal respiratory effort and no audible wheezes Auscultation: clear to auscultation bilaterally, no crackles, no wheezes and lung sounds not diminished Cardio Rate: regular rate Rhythm: regular rhythm Peripheral pulses: radial pulses present and dorsalis pedis present GI Other: Guaiac negative stools normal prostate Palpation (GI): no masses Auscultation: normal bowel sounds and normoactive bowel sounds Rectal Exam - Male: Yes deferred Male General Exam: Yes normal external exam Skin General skin exam: no rashes or lesions noted Rashes: no rashes Neuro General: deep tendon reflexes 2+ bilaterally and No confusion Cranial nerves: Yes Equal, round and reactive pupils present, Yes Midline tongue present, Yes Normal hearing present and Yes Ability to bilaterally elevate shoulders present Cognition (Neuro): normal cognition Gait exam (Neuro): Normal gait present Motor exam (neuro): 5/5 motor strength present throughout Deep tendon reflexes (DTR's): Right brachioradialis reflex intensity grade: 2+, Left brachioradialis reflex intensity grade: 2+, Right patellar reflex intensity grade: 2+ and Left patellar reflex intensity grade: 2+ Extrem Other: Pedal pulses normal, pinprick normal noted white macerated skin in between the 4th and 5th toes/interdigital General: No edema Immunizations pneumoc 20-krystal conj-dip cr(PF) 0.5 mL IM syringe Performing Provider: Venu Barclay MD Performing Location: [facility] Administered by: Vivien Judge CMA on 12/09/24 17:32 Dose Route Admin Location Dispensed Lot Number Expiration Date [facility] Plan Checker 0.5 mL IM Left Deltoid 0.5 mL [id number] 11/08/25 [employer] Total Dispensed Waste 0.5 mL 0 % VIS Given Date VIS Provided VIS Publication Date 12/09/24 Single Vaccine 24 Eligibility Eligibility Date Funding Source Not [facility] Eligible 12/09/24 Private Coding Level of Care Code Est Pt Prev Care 40-64y(44362) Diagnoses Annual physical exam Z00.00 Type 2 diabetes mellitus with hyperglycemia E11.65 Class 1 obesity due to excess calories without serious comorbidity with body mass index (BMI) of 31.0 to 31.9 in adult E66.09; Z68.31 Obesity type: due to excess calories Obesity classification: adult class 1 (BMI 30 - 34.9) Serious obesity comorbidity presence: without serious comorbidity Body mass index: BMI 31.0-31.9 Gastroesophageal reflux disease without esophagitis K21.9 Esophagitis presence: without esophagitis Tinea pedis B35.3 Assessment & Plan Assessment & Plan (1) Annual physical exam: Code(s): Z00.00 - Encounter for general adult medical examination without abnormal findings Category: Medical Plan: Patient is advised to eat healthy, keep well hydrated, keep active and have adequate sleep. (2) Type 2 diabetes mellitus with hyperglycemia: Code(s): E11.65 - Type 2 diabetes mellitus with hyperglycemia Category: Medical Plan: Decrease the amount of carbohydrate intake, pasta, bread, rice and potatoes are all sugar and that is aside from all the sweet stuff, remember that fruits are good but they are Sweet also. Hemoglobin A1c goal of less than 6.5. (3) Obesity: Code(s): E66.9 - Obesity, unspecified Category: Medical Qualifiers: Obesity type: due to excess calories Obesity classification: adult class 1 (BMI 30 - 34.9) Serious obesity comorbidity presence: without serious comorbidity Body mass index: BMI 31.0-31.9 Qualified Code(s): E66.09 - Other obesity due to excess calories; Z68.31 - Body mass index [BMI] 31.0-31.9, adult Plan: Diet and exercise (4) GERD (gastroesophageal reflux disease): Code(s): K21.9 - Gastro-esophageal reflux disease without esophagitis Category: Medical Qualifiers: Esophagitis presence: without esophagitis Qualified Code(s): K21.9 - Gastro-esophageal reflux disease without esophagitis Plan: Avoid the foods that causes that usually spicy foods, tomato products, juices, coffee, soda and foods that your sensitive to. After eating do not lie down, allow 3-4 hours before in lie down. And keep the head of bed above 30 degrees to avoid the acid from going up. (5) Tinea pedis: Code(s): B35.3 - Tinea pedis Category: Medical Plan History of Present Illness The patient is a 54-year-old male presenting for a wellness visit and management of chronic conditions. He has a history of obesity and has recently lost 10 pounds. The patient has impaired glucose tolerance with a hemoglobin A1c of 6.4, which is an improvement from previous levels. The patient has a history of gastroesophageal reflux disease (GERD) and reports occasional heartburn, particularly after alcohol consumption. He has a history of tubular adenoma of the colon, with the last colonoscopy performed in May 2020, and is up to date with screenings. The patient has diverticular disease and diabetes mellitus, with the latter being managed without medication due to stable blood glucose levels. He also has lumbar degenerative disc disease, which causes occasional lower back pain, especially after physical activities like racquetball. The patient reports a fungal infection on his feet, identified as athlete's foot, which is being treated with antifungal cream and powder. 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 - Alcohol use: Consumes alcohol occasionally, approximately once every two weeks - Smoking: Denies tobacco use - Recreational drugs: Denies use - Diet: Reports improved dietary habits, avoiding fast food Review of Systems - General: Reports feeling good, denies dizziness, nausea, or vomiting - Cardiovascular: Denies chest pain or palpitations - Respiratory: Denies dyspnea or cough - Gastrointestinal: Reports occasional heartburn, denies constipation or diarrhea - Genitourinary: Denies dysuria, reports nocturia twice per night - Musculoskeletal: Reports occasional lower back pain and knee pain - Neurological: Denies headaches or balance issues Physical Exam General: Cooperative, healthy appearing, comfortable, no acute distress, well developed, and noted 10-pound weight loss. Orientation: Patient oriented x3 Limitations: No limitations Head: Normal to inspection Ears: Hearing grossly normal bilaterally Nose: Normal external nose present Face and sinus: Normal facial exam Eyes: Appearance normal, both eyes and all related structures Neck: Normal visual inspection and Yes full ROM Respiratory: Normal respiratory effort and able to speak in complete sentences. Clear to auscultation bilaterally Cardiovascular: Regular rate and rhythm. Normal S1 and S2 GI: Normal to inspection. Soft to palpation and nontender Skin: No rashes or lesions noted, but presence of fungal infection on feet (athlete's foot). Neuro: Patient oriented x3 Extremities: Normal to inspection, except for fungal infection on feet. Results - Labs: Normal blood count, normal electrolytes, renal function at 1.25, hemoglobin A1c at 6.4, LDL cholesterol at 85, normal PSA, B12, and folic acid levels, no proteinuria in urine test Plan The patient will continue with lifestyle modifications to manage obesity and impaired glucose tolerance, including dietary changes and regular exercise. The goal is to maintain a hemoglobin A1c below 6.5, and the patient is advised to monitor blood glucose levels regularly. For GERD, the patient is advised to avoid alcohol and foods that trigger symptoms. The patient is scheduled for a follow-up colonoscopy in 2025 due to a history of tubular adenoma. For diabetes management, the patient is encouraged to maintain current lifestyle changes and monitor kidney function due to the use of NSAIDs like Aleve. The patient is advised to use Tylenol instead of NSAIDs when possible to protect kidney function. For the fungal infection, the patient will apply antifungal cream and powder to the feet twice daily. The patient will receive a pneumonia vaccination due to diabetes mellitus and is advised to consider the shingles vaccination. Patient was informed and verbally consented to the use of an ambient scribe for clinic note documentation during this visit. Discussion Notes During the visit, I discussed the importance of maintaining a healthy lifestyle to manage obesity and impaired glucose tolerance. We reviewed the patient's current hemoglobin A1c level and set a goal to keep it below 6.5. I advised the patient to avoid alcohol and trigger foods to manage GERD symptoms. We also discussed the need for a follow-up colonoscopy in 2025 due to a history of tubular adenoma. I emphasized the importance of monitoring kidney function, especially with the use of NSAIDs, and recommended using Tylenol when possible. We addressed the fungal infection on the patient's feet and prescribed antifungal treatment. Additionally, I recommended a pneumonia vaccination due to the patient's diabetes and discussed the option of a shingles vaccination. Patient Instructions - Continue with dietary changes and regular exercise to manage weight and blood sugar levels. - Monitor blood glucose levels regularly and aim to keep hemoglobin A1c below 6.5. - Avoid alcohol and foods that trigger GERD symptoms. - Schedule a follow-up colonoscopy in 2025. - Use Tylenol instead of NSAIDs when possible to protect kidney function. - Apply antifungal cream and powder to feet twice daily. - Receive a pneumonia vaccination and consider the shingles vaccination. Orders: Orders Pneumococcal 20 Immunization Today Z23 - Encounter for immunization Lipid Panel 5 Months E11.65 - Type 2 diabetes mellitus with hyperglycemia, E78.00 - Pure hypercholesterolemia, unspecified Comprehensive Met. Panel 5 Months E11.65 - Type 2 diabetes mellitus with hyperglycemia Medications: New miconazole nitrate 2% (Zeasorb AF) 1 appl topical BID 85 grams 0RF clotrimazole 1% 1 appl topical BID 45 grams 1RF 4 weeks
== END 2024-12-09 17:33 | disposition home or self-care (01) ==
PROVIDERS: PCP Internal Medicine; Visit Provider Internal Medicine
DX: Z00.00 Encounter for general adult medical examination without abnormal findings (principal); E11.65 Type 2 diabetes mellitus with hyperglycemia; E66.09 Other obesity due to excess calories; Z68.31 Body mass index [BMI] 31.0-31.9, adult; K21.9 Gastro-esophageal reflux disease without esophagitis; B35.3 Tinea pedis; Z23 Encounter for immunization